=== PATIENT | female | born 1975 | race Caucasian/White ===

== ENCOUNTER 2017-01-03 18:14 | Inpatient (IN) | payer OTHER ==
[2017-01-03] MEDS ORDERED: METOCLOPRAMIDE HCL INJECTION 10 MG/2 ML VIAL IVPB ONE (20:25)
[2017-01-03] MEDS ORDERED: SODIUM CHLORIDE 0.9% 1000 ML INFUS.BAG IV ONE ×2 (20:29→23:38)
--- NOTE | 2017-01-03 21:15 | PDOC ---
History of Present Illness - General History Source: Patient Exam Limitations: No Limitations - History of Present Illness Initial Comments: 01/03/17 21:23 The patient is a 41-year-old female, with a significant past medical history of diabetes, who presents to the ED with 3 days of headache, weakness, and lightheadedness. Pt reports taking Aleve but with no relief of her symptoms. Upon examination, pt is experiencing upper abdominal pain and nausea. She reports not being able to take her insulin today due to nausea. Pt threw up before arriving at the ED. The patient denies any fever, chills, cough, or diarrhea. Pt denies any chest pain or shortness of breath. Pt denies any recent sick contacts. <Zaynab Bruno - Last Filed: 01/04/17 01:49> <Mona Ames - Last Filed: 01/04/17 02:59> <Ana Hernández - Last Filed: 01/04/17 03:02> - General Chief Complaint: Lightheaded Stated Complaint: LIGHTHEADED Past History <Zaynab Bruno - Last Filed: 01/04/17 01:49> <Mona Ames - Last Filed: 01/04/17 02:59> - Past Medical History Diabetes: Yes - Psycho/Social/Smoking Cessation Hx Anxiety: No Suicidal Ideation: No Smoking History: Never smoked Hx Alcohol Use: No Drug/Substance Use Hx: No Substance Use Type: None <Ana Hernández - Last Filed: 01/04/17 03:02> - Past Medical History Allergies/Adverse Reactions: Allergies Allergy/AdvReac Type Severity Reaction Status Date / Time No Known Allergies Allergy Verified 01/03/17 18:31 Review of Systems - Review of Systems Able to Perform ROS?: Yes Comments:: 01/03/17 21:24 GENERAL/CONSTITUTIONAL: No fever or chills. +weakness. HEAD, EYES, EARS, NOSE AND THROAT: No change in vision. No ear pain or discharge. No sore throat. CARDIOVASCULAR: No chest pain or shortness of breath. RESPIRATORY: No cough, wheezing, or hemoptysis. GASTROINTESTINAL: No diarrhea or constipation. +nausea, vomiting, abdominal pain GENITOURINARY: No dysuria, frequency, or change in urination. MUSCULOSKELETAL: No joint or muscle swelling or pain. No neck or back pain. SKIN: No rash NEUROLOGIC: No loss of consciousness, or change in strength/sensation. +headache , lightheadedness ENDOCRINE: No increased thirst. No abnormal weight change. HEMATOLOGIC/LYMPHATIC: No anemia, easy bleeding, or history of blood clots. ALLERGIC/IMMUNOLOGIC: No hives or skin allergy. <Zaynab Bruno - Last Filed: 01/04/17 01:49> *Physical Exam - Vital Signs Last Vital Signs Temp Pulse Resp BP Pulse Ox 98.7 F 110 H 20 109/63 100 01/03/17 18:28 01/03/17 18:28 01/03/17 18:28 01/03/17 18:28 01/03/17 18:28 - Physical Exam Comments: 01/03/17 21:26 GENERAL: Awake, alert, and fully oriented, in no acute distress HEAD: No signs of trauma EYES: PERRLA, EOMI, sclera anicteric, conjunctiva clear ENT: Auricles normal inspection, nares patent, oropharynx clear without exudates. +Dry mucous membranes NECK: Normal ROM, supple, no lymphadenopathy, JVD, or masses LUNGS: Breath sounds equal, clear to auscultation bilaterally. No wheezes, and no crackles HEART: Regular rate and rhythm, normal S1 and S2, no murmurs, rubs or gallops ABDOMEN: Soft, nontender, normoactive bowel sounds. No guarding, no rebound. No masses EXTREMITIES: Normal range of motion, no edema. No clubbing or cyanosis. No cords, erythema, or tenderness NEUROLOGICAL: ANO x3, moving all extremities, cranial nerves grossly intact. SKIN: Warm, Dry, normal turgor, no rashes or lesions noted <Zaynab Bruno - Last Filed: 01/04/17 01:49> - Vital Signs Last Vital Signs Temp Pulse Resp BP Pulse Ox 98.7 F 110 H 20 109/63 100 01/03/17 18:28 01/03/17 18:28 01/03/17 18:28 01/03/17 18:28 01/03/17 18:28 <Mona Ames - Last Filed: 01/04/17 02:59> - Vital Signs Last Vital Signs Temp Pulse Resp BP Pulse Ox 98.7 F 110 H 20 109/63 100 01/03/17 18:28 01/03/17 18:28 01/03/17 18:28 01/03/17 18:28 01/03/17 18:28 <Ana Hernández - Last Filed: 01/04/17 03:02> ED Treatment Course - LABORATORY CBC & Chemistry Diagram: 01/03/17 21:45 01/03/17 21:45 <Zaynab Bruno - Last Filed: 01/04/17 01:49> - LABORATORY CBC & Chemistry Diagram: 01/03/17 21:45 01/03/17 21:45 - ADDITIONAL ORDERS Additional order review: Laboratory Results 01/04/17 01/03/17 01/03/17 01:18 23:48 22:33 VBG pH 7.20 L* POC VBG pCO2 47.8 POC VBG pO2 28.2 Mixed VBG HCO3 17.8 L Sodium Potassium Chloride Carbon Dioxide Anion Gap BUN Creatinine Creat Clearance w eGFR POC Glucometer > 400 Random Glucose Calcium Total Bilirubin AST ALT Alkaline Phosphatase Total Protein Albumin Urine Color Ltyellow Urine Appearance Slcloudy Urine pH 5.0 Urine Protein 1+ H Urine Glucose (UA) 3+ H Urine Ketones 2+ H Urine Blood 2+ H Urine Nitrite Negative Urine Bilirubin Negative Urine Urobilinogen Negative Ur Leukocyte Esterase Negative Urine RBC 14 Urine WBC 23 Ur Epithelial Cells Rare Urine Bacteria Rare Urine Mucus Rare Urine HCG, Qual Negative Acetone, Qual 01/03/17 21:45 VBG pH POC VBG pCO2 POC VBG pO2 Mixed VBG HCO3 Sodium 137 Potassium 4.2 Chloride 99 Carbon Dioxide 20 L Anion Gap 18 H BUN 23 H Creatinine 1.5 H Creat Clearance w eGFR 37.90 POC Glucometer Random Glucose 236 H Calcium 9.3 Total Bilirubin 0.7 AST 17 ALT 20 Alkaline Phosphatase 110 Total Protein 7.7 Albumin 3.2 L Urine Color Urine Appearance Urine pH Urine Protein Urine Glucose (UA) Urine Ketones Urine Blood Urine Nitrite Urine Bilirubin Urine Urobilinogen Ur Leukocyte Esterase Urine RBC Urine WBC Ur Epithelial Cells Urine Bacteria Urine Mucus Urine HCG, Qual Acetone, Qual Positive small 1+ H 01/04/17 01/03/17 01:18 21:45 RBC 4.56 MCV 84.6 MCHC 32.3 RDW 13.8 MPV 8.0 Neutrophils % 88.7 H Lymphocytes % 3.8 L Monocytes % 7.4 Eosinophils % 0.0 Basophils % 0.1 POC Glucometer > 400 - Medications Given in the ED: ED Medications Discontinued Medications Generic Name Dose Route Start Last Admin Trade Name Refugio PRN Reason Stop Dose Admin Al Hydroxide/Mg Hydroxide 30 ml 01/04/17 00:50 01/04/17 01:30 Mylanta Oral Suspension - PO 01/04/17 00:51 30 ml ONCE ONE Administration Famotidine/Sodium Chloride 50 mls @ 100 mls/hr 01/04/17 00:50 01/04/17 01:30 Pepcid 20 Mg Premixed Ivpb - IVPB 01/04/17 01:19 100 mls/hr ONCE ONE Administration Insulin Human Regular 2 units 01/04/17 00:49 01/04/17 01:30 Novolin R Vial *For Ivpush Or Iv Drip Only* IVPUSH 01/04/17 00:50 2 units ONCE ONE Administration Insulin Human Regular 4 units 01/04/17 01:20 01/04/17 01:30 Novolin R Vial *For Ivpush Or Iv Drip Only* IVPUSH 01/04/17 01:21 4 units ONCE ONE Administration Metoclopramide HCl 10 mg 01/03/17 20:25 01/03/17 21:23 Reglan Injection - IVPB 01/03/17 20:26 10 mg ONCE ONE Administration Ondansetron HCl 4 mg 01/03/17 23:37 01/03/17 23:56 Zofran Injection IVPUSH 01/03/17 23:38 4 mg ONCE ONE Administration Sodium Chloride 1,000 ml 01/03/17 20:29 01/03/17 21:23 Normal Saline - IV 01/03/17 20:30 1,000 ml ONCE ONE Administration Sodium Chloride 1,000 ml 01/03/17 23:38 01/03/17 23:46 Normal Saline - IV 01/03/17 23:39 1,000 ml ONCE ONE Administration <Mona Ames - Last Filed: 01/04/17 02:59> - LABORATORY CBC & Chemistry Diagram: 01/03/17 21:45 01/03/17 21:45 <Ana Hernández - Last Filed: 01/04/17 03:02> Medical Decision Making - Medical Decision Making 01/04/17 00:51 Dr. Linda Singh was paged and notified via phone service. Second page placed at 01:49. <Zaynab Bruno - Last Filed: 01/04/17 01:49> - Medical Decision Making 01/04/17 02:[address] Mich Peterson (via answering service) at 2:59 Awaiting call back 01/04/17 03:00 Patient's cased discussed with Dr. Singh at 3:00 <Mona Ames - Last Filed: 01/04/17 02:59> - Medical Decision Making 01/03/17 21:12 41 yo F with h/o DM II on insulin here with c/o body aches, abd pain, headache. started 3 days ago, generalized, no fever. no sick contacts. has not takin insulin due to inability to eat. last emesis one hour prior. no diarrhea. no urinary complaints. did feel lightheaded. on exam pt awake alert, lungs clear bilaterally, heart RRR no mr/g. abd soft NT ND. ext WWP. skin warm and dry. dry mucous membranes. alert and oriented x 3. plan : differential dka, anemia, electorltye abnormality, gastritis, pancreatitis, , dehydration. plan iv fluids r/o dka labs ua ucg reassess. 01/03/17 23:40 01/04/17 02:52 dr singh who admits for Francia, called 3 times. no response. d/w hospitalist told to admit to Dr. Peterson. fidel paged. <Ana Hernández - Last Filed: 01/04/17 03:02> *DC/Admit/Observation/Transfer - Attestations Scribe Attestion: 01/03/17 21:27 Documentation prepared by Zaynab Bruno, acting as medical receptionist medical assistant for Ana Hernández MD. <Zaynab Bruno - Last Filed: 01/04/17 01:49> <Mona Ames - Last Filed: 01/04/17 02:59> - Discharge Dispostion Admit: Yes <Ana Hernández - Last Filed: 01/04/17 03:02> Diagnosis at time of Disposition: Urinary tract infection, Diabetic ketoacidosis - Referrals Referrals: Donovan Feldman MD [Primary Care Provider] -
[2017-01-03 21:53] LABS: BASOPHIL 0.1 % (0-2.0); MCH 27.4 pg (25.7-33.7); MCHC 32.3 g/dl (32.0-36.0); MEAN CELL VOLUME 84.6 fl (80-96); NEUTROPHILS 88.7 % (42.8-82.8); PLATELET COUNT 258 K/MM3 (134-434); RDW 13.8 % (11.6-15.6); WHITE BLOOD COUNT 18.6 K/mm3 (4.0-10.0)
[2017-01-03] MEDS ORDERED: METOCLOPRAMIDE HCL INJECTION 10 MG/2 ML VIAL ONE (21:59)
[2017-01-03 22:21] LABS: ALBUMIN 3.2 g/dl (3.4-5.0); ALK PHOS 110 U/L (45-117); ANION GAP 18 (8-16); BILIRUBIN,TOTAL 0.7 mg/dL (0.2-1.0); CALCIUM 9.3 mg/dL (8.5-10.1); CO2 20 mmol/L (21-32); COCKROFT - GAULT 50.2095; CREATININE 1.5 mg/dL (0.55-1.02); GLUCOSE,RANDOM 236 mg/dL (74-106); SGOT/AST 17 U/L (15-37); SGPT/ALT 20 U/L (12-78); TOT PROT 7.7 g/dl (6.4-8.2)
[2017-01-03 22:45] LABS: VENOUS BLOOD GAS HCO3 17.8 meq/L (19-25)
[2017-01-03 22:46] LABS: VENOUS PH 7.2 (7.32-7.42)
[2017-01-03 22:59] LABS: ACETONE SERUM POSITIVE SMALL 1+ (NEGATIVE)
[2017-01-03] MEDS ORDERED: ONDANSETRON 4 MG/2 ML VIAL IVPUSH ONE (23:37)
[2017-01-03] MEDS ORDERED: ONDANSETRON 4 MG/2 ML VIAL ONE (23:50)
[2017-01-04 00:15] LABS: URINE APPEARANCE SLCLOUDY; URINE BILIRUBIN NEGATIVE (NEGATIVE); URINE COLOR LTYELLOW; URINE GLUCOSE (UA) 3+ (NEGATIVE); URINE KETONE 2+ (NEGATIVE); URINE LEUK ESTERASE NEGATIVE (NEGATIVE); URINE NITRITE NEGATIVE (NEGATIVE); URINE UROBILINOGEN NEGATIVE E.U./dl (0.2-1.0)
[2017-01-04 00:20] LABS: URINE BLOOD 2+ (NEGATIVE); URINE PROTEIN 1+ (NEGATIVE)
[2017-01-04 00:30] LABS: URINE BACTERIA RARE /hpf (NONE SEEN); URINE MUCUS RARE; URINE RBC 14 /hpf (0-3); URINE WBC 23 /hpf (3-5)
[2017-01-04] MEDS ORDERED: INSULIN REGULAR HUMAN 100 UNITS/ML *VIAL IVPUSH ONE ×2 (00:49→01:20)
[2017-01-04] MEDS ORDERED: MAG HYDROX/AL HYDROX/SIMETH 30 ML UNIT-DOSE CUP PO ONE (00:50)
[2017-01-04] MEDS ORDERED: FAMOTIDINE 20 MG/50 ML IVPB 50 ML IVPB ONE ×2 (00:50→01:22)
[2017-01-04] MEDS ORDERED: MAG HYDROX/AL HYDROX/SIMETH 30 ML UNIT-DOSE CUP ONE (01:21)
[2017-01-04] MEDS ORDERED: INSULIN REGULAR HUMAN 100 UNITS/ML *VIAL ONE (01:22)
[2017-01-04] MEDS ORDERED: CEFTRIAXONE 1 GM in DEXTROSE 5%-WATER - 50 ML IVPB ONE (02:35)
[2017-01-04] MEDS ORDERED: KETOROLAC TROMETHAMINE 30 MG/1 ML VIAL IVPUSH ONE (11:30)
[2017-01-04] MEDS ORDERED: SODIUM CHLORIDE 0.45% 1,000 ML IV SCH (13:30)
[2017-01-04] MEDS ORDERED: INSULIN DETEMIR 100 UNITS/ML MDV SQ SCH (13:30)
[2017-01-04] MEDS ORDERED: PATIENT'S OWN MEDICATION (NON-FORMULARY) (Metformin Hcl [Metformin Hcl Er] 1,000 MG) PO SCH (13:30)
--- NOTE | 2017-01-04 15:36 | CONSULT ---
Consult Consult Specialty:: infectious diseases Reason for Consultation:: abd pain,leukocytosis - History of Present Illness Chief Complaint: abd pain,nausea History of Present Illness: 41-year-old female, with a significant past medical history of diabetes, who is being admitted with 3 days of headache, weakness, and lightheadedness. Pt reports taking Aleve but with no relief of her symptoms. patients pain is mainly upper abd pain and according to her was very uncomfortable she feels much better and also patient had her lunch which she tolerated it well on work up patient has leukocytosis and also looks like patient is non compliant and did not take her insulin - History Source History Provided By: Patient Limitations to Obtaining History: No Limitations - Alcohol/Substance Use Hx Alcohol Use: No - Smoking History Smoking history: Never smoked Home Medications - Allergies Allergies/Adverse Reactions: Allergies Allergy/AdvReac Type Severity Reaction Status Date / Time No Known Allergies Allergy Verified 01/03/17 18:31 - Home Medications Home Medications: Ambulatory Orders Dapagliflozin Propanediol [Farxiga] 5 mg PO DAILY 01/04/17 Insulin (Levemir) [Levemir Flexpen -] 0 units SQ DAILY 01/04/17 Metformin HCl [Metformin HCl ER] 1,000 mg PO BID 01/04/17 Review of Systems - Review of Systems Constitutional: reports: No Symptoms Eyes: reports: No Symptoms HENT: reports: No Symptoms, Ringing in Ears Neck: reports: No Symptoms Cardiovascular: reports: No Symptoms Respiratory: reports: No Symptoms Gastrointestinal: reports: Abdominal Pain, Nausea Breasts: reports: No Symptoms Reported Musculoskeletal: reports: No Symptoms Integumentary: reports: No Symptoms Neurological: reports: No Symptoms Endocrine: reports: No Symptoms Hematology/Lymphatic: reports: No Symptoms Psychiatric: reports: No Symptoms Physical Exam Vital Signs: Vital Signs Temperature 98.9 F 01/04/17 14:00 Pulse Rate 112 H 01/04/17 14:00 Respiratory Rate 20 01/04/17 14:00 Blood Pressure 101/55 01/04/17 14:00 O2 Sat by Pulse Oximetry (%) 98 01/04/17 08:06 Constitutional: Yes: No Distress, Calm Eyes: Yes: Conjunctiva Clear HENT: Yes: Atraumatic Neck: Yes: Supple, Trachea Midline Cardiovascular: Yes: Regular Rate and Rhythm Respiratory: Yes: Regular, CTA Bilaterally Gastrointestinal: Yes: Normal Bowel Sounds, Soft, Tenderness (ruq) Musculoskeletal: Yes: WNL Extremities: Yes: WNL Neurological: Yes: Alert, Oriented Psychiatric: Yes: Alert, Oriented Assessment/Plan after evaluating the patient i have couple of tough process one is that he abd pain and all other symptoms could be due to uncontrolled bp the other couls be due to dyspepsis and lastly could be due to choley which is less likely uncontrolled dm dehydration leukocytosis dyspepsia plan will get u/s of the gall bladder iv fluids monitor wbc will start on abx rest as per primary await for all other results to be back
[2017-01-04] MEDS ORDERED: SODIUM CHLORIDE 1,000 ML IV SCH (15:45)
[2017-01-04] MEDS: PIPERACILLIN/TAZOB 3.375 GM 50 ML IVPB SCH (17:43)
[2017-01-04] MEDS: INSULIN SLIDING SCALE (NOVOLOG) 1 VIAL SQ SCH ×2 (17:43→23:04)
[2017-01-04 18:38] VITALS: BMI 28.9
[2017-01-04] MEDS: KETOROLAC TROMETHAMINE 30 MG/1 ML VIAL IVPUSH PRN (19:11)
--- NOTE | 2017-01-04 20:36 | CON.GI ---
Consult Consult Specialty:: Gastroenterology Referred by:: Dr Donovan Feldman/MD Francisco - History of Present Illness History of Present Illness: 41 y/o female has chronic headache and has been on NSAID use for the past few months. Yesterday developed severe epigastric pain, nausea and vomiting which persisted up to the time of admission. Today she feels better. - Past Medical History ...LMP Comment: 10 years ago - Alcohol/Substance Use Hx Alcohol Use: No - Smoking History Smoking history: Never smoked Have you smoked in the past 12 months: No Home Medications - Allergies Allergies/Adverse Reactions: Allergies Allergy/AdvReac Type Severity Reaction Status Date / Time No Known Allergies Allergy Verified 01/03/17 18:31 - Home Medications Home Medications: Ambulatory Orders Dapagliflozin Propanediol [Farxiga] 5 mg PO DAILY 01/04/17 Insulin (Levemir) [Levemir Flexpen -] 0 units SQ DAILY 01/04/17 Metformin HCl [Metformin HCl ER] 1,000 mg PO BID 01/04/17 Physical Exam-GI Vital Signs: Vital Signs Temperature 100.4 F H 01/04/17 18:25 Pulse Rate 123 H 01/04/17 18:25 Respiratory Rate 20 01/04/17 18:25 Blood Pressure 109/61 01/04/17 18:25 O2 Sat by Pulse Oximetry (%) 98 01/04/17 08:06 Constitutional: Yes: Well Nourished Eyes: Yes: Conjunctiva Clear HENT: Yes: Atraumatic Neck: Yes: Supple Cardiovascular: Yes: Regular Rate and Rhythm Respiratory: Yes: CTA Bilaterally ...Palpate: Yes: Soft, Tenderness, Epigastium. No: Firm/Rigid, Guarding, Hepatomegaly, Mass, Pulsatile Mass, Splenomegaly, Tenderness Imaging - Results Ultrasound: Report Reviewed Problem List - Problems (1) Dyspepsia Assessment/Plan: r/o peptic ulcer disease R> Protonix 40mg daily Reglan 5mg 30 min ac on discharge made aware to follow-up Code(s): R10.13 - EPIGASTRIC PAIN
[2017-01-04] MEDS: METOCLOPRAMIDE HCL INJECTION 10 MG/2 ML VIAL IVPB SCH (20:58)
[2017-01-04] MEDS: SODIUM CHLORIDE 1,000 ML IV SCH ×2 (20:58→21:24)
[2017-01-04] MEDS ORDERED: PNEUMOC 13-VAL CONJ-DIP CRM/PF 0.5 ML DISP.SYRIN IM ONE (21:00)
[2017-01-04] MEDS: HEPARIN NA (PORCINE) 5,000 UNITS/ML 1ML VIAL SQ SCH (21:21)
[2017-01-04] MEDS: ONDANSETRON 4 MG/2 ML VIAL IVPB SCH (21:23)
--- NOTE | 2017-01-04 23:20 | HP ---
Admitting History and Physical - Admission History of Present Illness: Pt is a 41-year-old female w/ PMH significant for diabetes who presents to the ER with 3 days of headache, weakness, and lightheadedness.Pt also c/o abdominal discomfort w/ nausea but no vomiting/fever/diarrhea/constipation. Pt states taht she has no appetite and did not take her insulin. In the ER pt found to be acetone (+) and a WBC of 18,000. US abdomen was done wc was unremarkable. - Past Medical History ...LMP Comment: 10 years ago Endocrine: Yes: Diabetes Mellitus - Past Surgical History Past Surgical History: Yes: None - Smoking History Smoking history: Never smoked Have you smoked in the past 12 months: No - Alcohol/Substance Use Hx Alcohol Use: No Home Medications - Allergies Allergies/Adverse Reactions: Allergies Allergy/AdvReac Type Severity Reaction Status Date / Time No Known Allergies Allergy Verified 01/03/17 18:31 - Home Medications Home Medications: Ambulatory Orders Dapagliflozin Propanediol [Farxiga] 5 mg PO DAILY 01/04/17 Insulin (Levemir) [Levemir Flexpen -] 0 units SQ DAILY 01/04/17 Metformin HCl [Metformin HCl ER] 1,000 mg PO BID 01/04/17 Family Disease History - Family Disease History Family History: Unremarkable Review of Systems - Review of Systems Constitutional: reports: Loss of Appetite, Weakness Eyes: reports: No Symptoms HENT: reports: No Symptoms Neck: reports: No Symptoms Cardiovascular: reports: No Symptoms Respiratory: reports: No Symptoms Gastrointestinal: reports: Abdominal Pain, Nausea Genitourinary: reports: No Symptoms Physical Examination Vital Signs: Vital Signs Temperature 100.4 F H 01/04/17 18:25 Pulse Rate 123 H 01/04/17 18:25 Respiratory Rate 20 01/04/17 18:25 Blood Pressure 109/61 01/04/17 18:25 O2 Sat by Pulse Oximetry (%) 98 01/04/17 08:06 Constitutional: Yes: No Distress Eyes: Yes: WNL HENT: Yes: WNL Neck: Yes: WNL, Supple Cardiovascular: Yes: WNL, Regular Rate and Rhythm Respiratory: Yes: WNL, Regular, CTA Bilaterally Gastrointestinal: Yes: WNL, Normal Bowel Sounds, Soft Breast(s): Yes: WNL Musculoskeletal: Yes: WNL Extremities: Yes: WNL Edema: No Neurological: Yes: WNL, Alert, Oriented ...Motor Strength: WNL Problem List - Problems (1) DKA (diabetic ketoacidoses) Assessment/Plan: Cont IVF Cont novolog w/ sliding scale Endo consult Advance diet as tolerated Code(s): E13.10 - OTH DIABETES MELLITUS WITH KETOACIDOSIS WITHOUT COMA (2) Abdominal pain Assessment/Plan: Will get GI consult Code(s): R10.9 - UNSPECIFIED ABDOMINAL PAIN (3) Leukocytosis Assessment/Plan: ID consult Cont IV antibxs Code(s): D72.829 - ELEVATED WHITE BLOOD CELL COUNT, UNSPECIFIED (4) Acute renal failure Assessment/Plan: Probably due to dehydration from DKA Code(s): N17.9 - ACUTE KIDNEY FAILURE, UNSPECIFIED
[2017-01-05] MEDS: KETOROLAC TROMETHAMINE 30 MG/1 ML VIAL IVPUSH PRN ×2 (00:57→21:41)
[2017-01-05] MEDS: ONDANSETRON 4 MG/2 ML VIAL IVPB SCH ×3 (00:57→08:48)
[2017-01-05] MEDS: PIPERACILLIN/TAZOB 3.375 GM 50 ML IVPB SCH ×2 (01:34→11:00)
[2017-01-05] MEDS: METOCLOPRAMIDE HCL INJECTION 10 MG/2 ML VIAL IVPB SCH ×3 (03:45→20:13)
[2017-01-05] MEDS ORDERED: INSULIN DETEMIR 100 UNITS/ML MDV SQ SCH ×2 (07:00→22:00)
[2017-01-05 07:32] LABS: BASOPHIL 0.2 % (0-2.0); EOSINOPHIL 0.3 % (0-4.5); MCH 28.2 pg (25.7-33.7); MCHC 33.5 g/dl (32.0-36.0); MEAN CELL VOLUME 84.3 fl (80-96); MEAN PLT VOLUME 8.2 fl (7.5-11.1); PLATELET COUNT 199 K/MM3 (134-434); WHITE BLOOD COUNT 13.9 K/mm3 (4.0-10.0)
[2017-01-05] MEDS: INSULIN SLIDING SCALE (NOVOLOG) 1 VIAL SQ SCH ×4 (07:33→21:40)
[2017-01-05 08:04] LABS: ALBUMIN 2.1 g/dl (3.4-5.0); ANION GAP 16 (8-16); CALCIUM 7.8 mg/dL (8.5-10.1); CO2 16 mmol/L (21-32); GLUCOSE,RANDOM 222 mg/dL (74-106)
[2017-01-05 08:08] LABS: ALK PHOS 115 U/L (45-117); BILIRUBIN,TOTAL 0.6 mg/dL (0.2-1.0); CREATININE 1.5 mg/dL (0.55-1.02); SGOT/AST 26 U/L (15-37); SGPT/ALT 24 U/L (12-78); TOT PROT 5.8 g/dl (6.4-8.2)
[2017-01-05] MEDS ORDERED: ONDANSETRON 4 MG/2 ML VIAL IVPB PRN (10:00)
[2017-01-05] MEDS ORDERED: CEFTRIAXONE 50 ML IVPB SCH (10:00)
[2017-01-05] MEDS ORDERED: PANTOPRAZOLE 40 MG TABLET (FP) PO SCH (10:00)
[2017-01-05] MEDS ORDERED: PT OWN MED DRAWER 7, Y5N ONE ×3 (10:59→12:06)
[2017-01-05] MEDS: HEPARIN NA (PORCINE) 5,000 UNITS/ML 1ML VIAL SQ SCH ×2 (11:01→21:35)
[2017-01-05] MEDS ORDERED: INSULIN (NOVOLOG) ASPART 100 UNITS/ML 10ML VIAL ONE ×3 (11:50→21:39)
--- NOTE | 2017-01-05 12:59 | PN ---
Progress Note, Physician History of Present Illness: doing much better tolerating diet more gerd type of symptoms now wbc decreasing - Current Medication List Current Medications: Active Medications Heparin Sodium (Porcine) (Heparin -) 5,000 unit SQ BID RICHIE Last Admin: 01/05/17 11:01 Dose: 5,000 unit Piperacillin Sod/Tazobactam Sod (Zosyn 3.375gm Ivpb (Pre-Docked)) 50 mls @ 100 mls/hr IVPB Q8H-IV RICHIE PRN Reason: Protocol Last Admin: 01/05/17 11:00 Dose: 100 mls/hr Sodium Chloride (Normal Saline -) 1,000 mls @ 150 mls/hr IV ASDIR RICHIE Stop: 01/06/17 22:24 Last Admin: 01/04/17 21:24 Dose: Not Given Insulin Aspart (Novolog Vial Sliding Scale -) 1 vial SQ ACHS RICHIE PRN Reason: Protocol Last Admin: 01/05/17 07:33 Dose: 4 units Insulin Detemir (Levemir Vial) 7 units SQ HS RICHIE Insulin Detemir (Levemir Vial) 22 units SQ AM RICHIE Last Admin: 01/05/17 07:33 Dose: 22 unit Ketorolac Tromethamine (Toradol Injection -) 30 mg IVPUSH Q6H PRN Stop: 01/09/17 17:29 Last Admin: 01/05/17 00:57 Dose: 30 mg Metoclopramide HCl (Reglan Injection -) 10 mg IVPB Q8H [facility] Last Admin: 01/05/17 11:56 Dose: 10 mg Non-Formulary Medication (Dapagliflozin Propanediol [Farxiga]) 5 mg PO ACBK RICHIE Ondansetron HCl (Zofran Injection) 4 mg IVPB Q4H PRN - Objective Vital Signs: Vital Signs Temperature 99.8 F H 01/04/17 22:00 Pulse Rate 108 H 01/04/17 22:00 Respiratory Rate 20 01/04/17 22:00 Blood Pressure 106/62 01/04/17 22:00 O2 Sat by Pulse Oximetry (%) 98 01/04/17 21:00 Constitutional: Yes: No Distress, Calm Eyes: Yes: Conjunctiva Clear Cardiovascular: Yes: Regular Rate and Rhythm Respiratory: Yes: Regular, CTA Bilaterally Gastrointestinal: Yes: Normal Bowel Sounds, Soft Musculoskeletal: Yes: WNL Extremities: Yes: WNL Labs: CBC, BMP 01/05/17 06:15 01/05/17 06:15 Assessment/Plan uncontrolled dm dehydration leukocytosis dyspepsia plan will hold abx and monitor rest as per gi and primary continue current mgmt
[2017-01-05] MEDS: SODIUM CHLORIDE 1,000 ML IV SCH ×2 (13:02→19:51)
[2017-01-05] MEDS ORDERED: ACETAMINOPHEN 325 MG TABLET (FP) ONE (22:03)
[2017-01-05] MEDS ORDERED: morphine CARPU-JECT 4 MG/1 ML DISP.SYRIN IVPUSH PRN (22:45)
[2017-01-05] MEDS ORDERED: cefTRIAXone 1 GM/50 ML BAG (PRE-DOCKED) IVPB ONE (23:15)
--- NOTE | 2017-01-05 23:30 | PN ---
Progress Note, Physician History of Present Illness: Pt tolerating diet - Current Medication List Current Medications: Active Medications Ceftriaxone Sodium (Rocephin 1gm Ivpb (Pre-Docked)) 1 gm IVPB DAILY [facility] Heparin Sodium (Porcine) (Heparin -) 5,000 unit SQ BID [facility] Sodium Chloride (Normal Saline -) 1,000 mls @ 150 mls/hr IV ASDIR [facility] Stop: 01/06/17 22:24 Last Admin: 01/05/17 19:51 Dose: 150 mls/hr Insulin Aspart (Novolog Vial Sliding Scale -) 1 vial SQ ACHS RICHIE PRN Reason: Protocol Last Admin: 01/05/17 21:40 Dose: 4 units Insulin Detemir (Levemir Vial) 7 units SQ HS [facility] Last Admin: 01/05/17 21:35 Dose: 7 units Insulin Detemir (Levemir Vial) 22 units SQ AM [facility] Last Admin: 01/05/17 07:33 Dose: 22 unit Metoclopramide HCl (Reglan Injection -) 10 mg IVPB Q8H [facility] Last Admin: 01/05/17 20:13 Dose: 10 mg Morphine Sulfate (Morphine Injection -) 4 mg IVPUSH Q6H PRN PRN Reason: PAIN Non-Formulary Medication (Dapagliflozin Propanediol [Farxiga]) 5 mg PO ACBK [facility] Ondansetron HCl (Zofran Injection) 4 mg IVPB Q4H PRN Pantoprazole Sodium (Protonix -) 40 mg PO DAILY [facility] - Objective Vital Signs: Vital Signs Temperature 101.6 F H 01/05/17 21:48 Pulse Rate 110 H 01/05/17 22:00 Respiratory Rate 18 01/05/17 22:00 Blood Pressure 133/78 01/05/17 22:00 O2 Sat by Pulse Oximetry (%) 98 01/05/17 21:00 Constitutional: Yes: No Distress Eyes: Yes: WNL HENT: Yes: WNL Neck: Yes: WNL, Supple Cardiovascular: Yes: WNL, Regular Rate and Rhythm Respiratory: Yes: WNL, Regular, CTA Bilaterally Gastrointestinal: Yes: WNL, Normal Bowel Sounds, Soft Labs: CBC, BMP 01/05/17 06:15 01/05/17 06:15 Problem List - Problems (1) Abdominal pain Code(s): R10.9 - UNSPECIFIED ABDOMINAL PAIN (2) Acute renal failure Code(s): N17.9 - ACUTE KIDNEY FAILURE, UNSPECIFIED (3) DKA (diabetic ketoacidoses) Code(s): E13.10 - OTH DIABETES MELLITUS WITH KETOACIDOSIS WITHOUT COMA (4) Leukocytosis Code(s): D72.829 - ELEVATED WHITE BLOOD CELL COUNT, UNSPECIFIED
--- NOTE | 2017-01-05 23:32 | CONSULT ---
Consult Consult Specialty:: endocrine Referred by:: dr.rocco garcia Reason for Consultation:: diabetes mellitus - History of Present Illness Chief Complaint: high sugars/abdominal pain History of Present Illness: 41-year-old female, with a significant past medical history of diabetes, who is being admitted with 3 days of headache, weakness, and lightheadedness. Pt reports taking Aleve but with no relief of her symptoms.history of dm since age 18yrs,was on oral agents in past years,has recent nausea and abdominal pain severe and associated with poor appetite no diarhea or hematochezia - History Source History Provided By: Patient - Past Medical History ...LMP Comment: 10 years ago - Alcohol/Substance Use Hx Alcohol Use: No - Smoking History Smoking history: Never smoked Have you smoked in the past 12 months: No Home Medications - Allergies Allergies/Adverse Reactions: Allergies Allergy/AdvReac Type Severity Reaction Status Date / Time No Known Allergies Allergy Verified 01/03/17 18:31 - Home Medications Home Medications: Ambulatory Orders Dapagliflozin Propanediol [Farxiga] 5 mg PO DAILY 01/04/17 Insulin (Levemir) [Levemir Flexpen -] 0 units SQ DAILY 01/04/17 Metformin HCl [Metformin HCl ER] 1,000 mg PO BID 01/04/17 Review of Systems - Review of Systems Constitutional: reports: Loss of Appetite, Weakness Eyes: reports: No Symptoms HENT: reports: No Symptoms Neck: reports: No Symptoms Cardiovascular: reports: No Symptoms Respiratory: reports: Exercise Intolerance, SOB, SOB on Exertion Gastrointestinal: reports: Constipation, Nausea Genitourinary: reports: No Symptoms Breasts: reports: No Symptoms Reported Musculoskeletal: reports: Muscle Weakness Integumentary: reports: No Symptoms Neurological: reports: No Symptoms Endocrine: reports: No Symptoms Hematology/Lymphatic: reports: No Symptoms Psychiatric: reports: No Symptoms Physical Exam Vital Signs: Vital Signs Temperature 101.6 F H 01/05/17 21:48 Pulse Rate 110 H 01/05/17 22:00 Respiratory Rate 18 01/05/17 22:00 Blood Pressure 133/78 01/05/17 22:00 O2 Sat by Pulse Oximetry (%) 98 01/05/17 21:00 Constitutional: Yes: Anxious Eyes: Yes: EOM Intact HENT: Yes: Normocephalic Neck: Yes: Trachea Midline Respiratory: Yes: CTA Bilaterally Gastrointestinal: Yes: Hypoactive Bowel Sounds, Tenderness, Epigastrium ...Rectal Exam: Yes: Deferred Renal/: Yes: WNL Breast(s): Yes: WNL Musculoskeletal: Yes: WNL, Muscle Weakness Extremities: Yes: WNL Edema: No Integumentary: Yes: WNL Neurological: Yes: WNL, Alert, Oriented Labs: CBC, BMP 01/05/17 06:15 01/05/17 06:15 Problem List - Problems (1) DKA (diabetic ketoacidoses) Code(s): E13.10 - OTH DIABETES MELLITUS WITH KETOACIDOSIS WITHOUT COMA (2) Dyspepsia Code(s): R10.13 - EPIGASTRIC PAIN (3) Diabetes mellitus, insulin dependent (IDDM), uncontrolled Code(s): E10.65 - TYPE 1 DIABETES MELLITUS WITH HYPERGLYCEMIA Assessment/Plan Current Active Problems DKA (diabetic ketoacidoses) (Acute) Dyspepsia (Acute) UTI (urinary tract infection) (Acute) iddm uncontrolled hyperglycemia gastroparesis Abnormal Lab Results 01/05/17 01/05/17 01/05/17 06:15 06:15 06:15 WBC 13.9 H Lymphocytes % 5.2 L D Monocytes % 14.3 H D Carbon Dioxide 16 L BUN 24 H Creatinine 1.5 H Random Glucose 222 H Hemoglobin A1c % 9.7 H Calcium 7.8 L Total Protein 5.8 L D Albumin 2.1 L D Laboratory Results - last 24 hr 01/05/17 01/05/17 01/05/17 05:52 05:54 06:15 WBC 13.9 H RBC 3.93 Hgb 11.1 D Hct 33.2 MCV 84.3 MCHC 33.5 RDW 14.0 Plt Count 199 D MPV 8.2 Neutrophils % 80.0 Lymphocytes % 5.2 L D Monocytes % 14.3 H D Eosinophils % 0.3 D Basophils % 0.2 Sodium Potassium Chloride Carbon Dioxide Anion Gap BUN Creatinine Creat Clearance w eGFR POC Glucometer 220 235 Random Glucose Hemoglobin A1c % Calcium Total Bilirubin AST ALT Alkaline Phosphatase Total Protein Albumin 01/05/17 01/05/17 01/05/17 06:15 06:15 11:04 WBC RBC Hgb Hct MCV MCHC RDW Plt Count MPV Neutrophils % Lymphocytes % Monocytes % Eosinophils % Basophils % Sodium 138 Potassium 4.2 Chloride 106 Carbon Dioxide 16 L Anion Gap 16 BUN 24 H Creatinine 1.5 H Creat Clearance w eGFR 37.90 POC Glucometer 204 Random Glucose 222 H Hemoglobin A1c % 9.7 H Calcium 7.8 L Total Bilirubin 0.6 AST 26 D ALT 24 Alkaline Phosphatase 115 Total Protein 5.8 L D Albumin 2.1 L D 01/05/17 01/05/17 16:46 21:34 WBC RBC Hgb Hct MCV MCHC RDW Plt Count MPV Neutrophils % Lymphocytes % Monocytes % Eosinophils % Basophils % Sodium Potassium Chloride Carbon Dioxide Anion Gap BUN Creatinine Creat Clearance w eGFR POC Glucometer 223 223 Random Glucose Hemoglobin A1c % Calcium Total Bilirubin AST ALT Alkaline Phosphatase Total Protein Albumin plan: bgm qid novolog scale insulin coverage levemir increase am 35 units hs levemir 12 units ck hba1c Current Medications Generic Name Dose Route Start Last Admin Trade Name Freq PRN Reason Stop Dose Admin Ceftriaxone Sodium 1 gm 01/06/17 10:00 Rocephin 1gm Ivpb (Pre-Docked) IVPB DAILY RICHIE Heparin Sodium (Porcine) 5,000 unit 01/06/17 10:00 Heparin - SQ BID RICHIE Sodium Chloride 1,000 mls @ 150 mls/hr 01/04/17 20:28 01/05/17 19:51 Normal Saline - IV 01/06/17 22:24 150 mls/hr ASDIR RICHIE Administration Insulin Aspart 1 vial 01/04/17 16:30 01/05/17 21:40 Novolog Vial Sliding Scale - SQ 4 units ACHS RICHIE Administration Protocol Insulin Detemir 7 units 01/05/17 22:00 01/05/17 21:35 Levemir Vial SQ 7 units HS RICHIE Administration Insulin Detemir 35 units 01/05/17 23:36 Levemir Vial SQ AM RICHIE Metoclopramide HCl 10 mg 01/04/17 20:30 01/05/17 20:13 Reglan Injection - IVPB 10 mg Q8H RICHIE Administration Morphine Sulfate 4 mg 01/05/17 22:45 Morphine Injection - IVPUSH Q6H PRN PAIN Non-Formulary Medication 5 mg 01/06/17 07:00 Dapagliflozin Propanediol [Farxiga] PO ACBK RICHIE Ondansetron HCl 4 mg 01/05/17 10:00 Zofran Injection IVPB Q4H PRN Pantoprazole Sodium 40 mg 01/06/17 10:00 Protonix - PO DAILY RICHIE
[2017-01-06] MEDS: METOCLOPRAMIDE HCL INJECTION 10 MG/2 ML VIAL IVPB SCH ×3 (04:19→20:31)
[2017-01-06] MEDS: PATIENT'S OWN MEDICATION (NON-FORMULARY) (Dapagliflozin Propanediol [Farxiga] 5 MG) PO SCH (06:00)
[2017-01-06] MEDS: INSULIN DETEMIR 100 UNITS/ML MDV SQ SCH ×2 (06:00→22:08)
[2017-01-06] MEDS: INSULIN SLIDING SCALE (NOVOLOG) 1 VIAL SQ SCH ×4 (06:00→22:07)
[2017-01-06 08:36] LABS: BASOPHIL 0.2 % (0-2.0); EOSINOPHIL 0.6 % (0-4.5); MCH 28.2 pg (25.7-33.7); MCHC 33.9 g/dl (32.0-36.0); MEAN CELL VOLUME 83.3 fl (80-96); MEAN PLT VOLUME 8.4 fl (7.5-11.1); PLATELET COUNT 223 K/MM3 (134-434); RDW 13.9 % (11.6-15.6); WHITE BLOOD COUNT 12.4 K/mm3 (4.0-10.0)
[2017-01-06 08:59] LABS: ALBUMIN 2.1 g/dl (3.4-5.0); ANION GAP 12 (8-16); CALCIUM 7.7 mg/dL (8.5-10.1); CO2 20 mmol/L (21-32); GLUCOSE,RANDOM 93 mg/dL (74-106)
[2017-01-06 09:03] LABS: ALK PHOS 227 U/L (45-117); BILIRUBIN,TOTAL 0.6 mg/dL (0.2-1.0); SGOT/AST 128 U/L (15-37); SGPT/ALT 108 U/L (12-78); TOT PROT 6.2 g/dl (6.4-8.2)
[2017-01-06] MEDS ORDERED: CEFTRIAXONE 1 GM in DEXTROSE 5%-WATER - 50 ML IVPB SCH (10:00)
[2017-01-06] MEDS: cefTRIAXone 1 GM/50 ML BAG (PRE-DOCKED) IVPB SCH (10:14)
[2017-01-06] MEDS: HEPARIN NA (PORCINE) 5,000 UNITS/ML 1ML VIAL SQ SCH ×2 (10:14→22:21)
[2017-01-06] MEDS: PANTOPRAZOLE 40 MG TABLET (FP) PO SCH (10:14)
[2017-01-06] MEDS ORDERED: PT OWN MED DRAWER 7, Y5N ONE ×2 (17:05→17:49)
[2017-01-06] MEDS: LIPASE/PROTEASE/AMYLASE 36,000 UNIT CAPSULE PO SCH (17:38)
[2017-01-06] MEDS ORDERED: INSULIN (NOVOLOG) ASPART 100 UNITS/ML 10ML VIAL ONE (17:52)
--- NOTE | 2017-01-06 23:55 | PN ---
Progress Note, Physician History of Present Illness: Pt feeling better - Current Medication List Current Medications: Active Medications Acetaminophen (Tylenol -) 650 mg PO Q6H PRN PRN Reason: FEVER OR PAIN Ceftriaxone Sodium (Rocephin 1gm Ivpb (Pre-Docked)) 1 gm IVPB DAILY [facility] Last Admin: 01/06/17 10:14 Dose: 1 gm Heparin Sodium (Porcine) (Heparin -) 5,000 unit SQ BID [facility] Last Admin: 01/06/17 22:21 Dose: 5,000 unit Insulin Aspart (Novolog Vial Sliding Scale -) 1 vial SQ ACHS [facility] PRN Reason: Protocol Last Admin: 01/06/17 22:07 Dose: 4 units Insulin Detemir (Levemir Vial) 35 units SQ AM [facility] Last Admin: 01/06/17 06:00 Dose: Not Given Insulin Detemir (Levemir Vial) 12 units SQ HS [facility] Last Admin: 01/06/17 22:08 Dose: 12 units Metoclopramide HCl (Reglan Injection -) 10 mg IVPB Q8H [facility] Last Admin: 01/06/17 20:31 Dose: 10 mg Morphine Sulfate (Morphine Injection -) 4 mg IVPUSH Q6H PRN PRN Reason: PAIN Non-Formulary Medication (Dapagliflozin Propanediol [Farxiga]) 5 mg PO ACBK [facility] Last Admin: 01/06/17 06:00 Dose: Not Given Ondansetron HCl (Zofran Injection) 4 mg IVPB Q4H PRN Pancrelipase (Creon Dr 36,000 Units Capsule) 1 cap PO TIDCM [facility] Last Admin: 01/06/17 17:38 Dose: 1 cap Pantoprazole Sodium (Protonix -) 40 mg PO DAILY [facility] Last Admin: 01/06/17 10:14 Dose: 40 mg - Objective Vital Signs: Vital Signs Temperature 100.6 F H 01/06/17 17:00 Pulse Rate 106 H 01/06/17 17:00 Respiratory Rate 20 01/06/17 17:00 Blood Pressure 127/72 01/06/17 17:00 O2 Sat by Pulse Oximetry (%) 96 01/06/17 09:00 Constitutional: Yes: No Distress Eyes: Yes: WNL HENT: Yes: WNL Neck: Yes: Supple Cardiovascular: Yes: WNL, Regular Rate and Rhythm Respiratory: Yes: WNL, Regular, CTA Bilaterally Gastrointestinal: Yes: WNL, Normal Bowel Sounds, Soft Labs: CBC, BMP 01/06/17 06:35 01/06/17 06:35 Problem List - Problems (1) DKA (diabetic ketoacidoses) Assessment/Plan: Cont IVF Cont novolog w/ sliding scale/farxiga Code(s): E13.10 - OTH DIABETES MELLITUS WITH KETOACIDOSIS WITHOUT COMA (2) Abdominal pain Assessment/Plan: GI consult noted Dyspepsia/Gastroparesis Cont protonix/reglan Code(s): R10.9 - UNSPECIFIED ABDOMINAL PAIN (3) Leukocytosis Assessment/Plan: IV antibxs as per ID Cultures remain negative Code(s): D72.829 - ELEVATED WHITE BLOOD CELL COUNT, UNSPECIFIED (4) Acute renal failure Assessment/Plan: Probably due to dehydration from DKA Resolved after IV hydration Code(s): N17.9 - ACUTE KIDNEY FAILURE, UNSPECIFIED
[2017-01-07] MEDS: METOCLOPRAMIDE HCL INJECTION 10 MG/2 ML VIAL IVPB SCH ×3 (04:41→21:56)
[2017-01-07] MEDS: PATIENT'S OWN MEDICATION (NON-FORMULARY) (Dapagliflozin Propanediol [Farxiga] 5 MG) PO SCH (06:52)
[2017-01-07] MEDS: INSULIN SLIDING SCALE (NOVOLOG) 1 VIAL SQ SCH ×4 (06:54→21:56)
[2017-01-07] MEDS: INSULIN DETEMIR 100 UNITS/ML MDV SQ SCH ×2 (06:54→21:56)
[2017-01-07] MEDS: ACETAMINOPHEN 325 MG TABLET (FP) PO PRN (06:59)
[2017-01-07] MEDS ORDERED: PT OWN MED DRAWER 7, Y5N ONE ×6 (08:15→15:18)
[2017-01-07] MEDS: LIPASE/PROTEASE/AMYLASE 36,000 UNIT CAPSULE PO SCH ×3 (08:22→17:59)
[2017-01-07] MEDS: cefTRIAXone 1 GM/50 ML BAG (PRE-DOCKED) IVPB SCH (09:04)
[2017-01-07] MEDS: PANTOPRAZOLE 40 MG TABLET (FP) PO SCH (09:04)
[2017-01-07] MEDS: HEPARIN NA (PORCINE) 5,000 UNITS/ML 1ML VIAL SQ SCH ×2 (09:04→21:56)
--- NOTE | 2017-01-07 11:37 | PN ---
Progress Note, Physician History of Present Illness: patient stable still continues to have low grade temperature otherwise no issues - Current Medication List Current Medications: Active Medications Acetaminophen (Tylenol -) 650 mg PO Q6H PRN PRN Reason: FEVER OR PAIN Last Admin: 01/07/17 06:59 Dose: 650 mg Ceftriaxone Sodium (Rocephin 1gm Ivpb (Pre-Docked)) 1 gm IVPB DAILY [facility] Last Admin: 01/07/17 09:04 Dose: 1 gm Heparin Sodium (Porcine) (Heparin -) 5,000 unit SQ BID [facility] Last Admin: 01/07/17 09:04 Dose: 5,000 unit Insulin Aspart (Novolog Vial Sliding Scale -) 1 vial SQ ACHS [facility] PRN Reason: Protocol Last Admin: 01/07/17 06:54 Dose: Not Given Insulin Detemir (Levemir Vial) 35 units SQ AM [facility] Last Admin: 01/07/17 06:54 Dose: Not Given Insulin Detemir (Levemir Vial) 12 units SQ HS [facility] Last Admin: 01/06/17 22:08 Dose: 12 units Metoclopramide HCl (Reglan Injection -) 10 mg IVPB Q8H [facility] Last Admin: 01/07/17 04:41 Dose: 10 mg Morphine Sulfate (Morphine Injection -) 4 mg IVPUSH Q6H PRN PRN Reason: PAIN Non-Formulary Medication (Dapagliflozin Propanediol [Farxiga]) 5 mg PO ACBK [facility] Last Admin: 01/07/17 06:52 Dose: 5 mg Ondansetron HCl (Zofran Injection) 4 mg IVPB Q4H PRN Pancrelipase (Creon Dr 36,000 Units Capsule) 1 cap PO TIDCM [facility] Last Admin: 01/07/17 08:22 Dose: 1 cap Pantoprazole Sodium (Protonix -) 40 mg PO DAILY [facility] Last Admin: 01/07/17 09:04 Dose: 40 mg - Objective Vital Signs: Vital Signs Temperature 99.8 F H 01/07/17 08:55 Pulse Rate 106 H 01/07/17 08:55 Respiratory Rate 18 01/07/17 08:55 Blood Pressure 112/60 01/07/17 08:55 O2 Sat by Pulse Oximetry (%) 96 01/06/17 21:00 Constitutional: Yes: No Distress, Calm Cardiovascular: Yes: Regular Rate and Rhythm Respiratory: Yes: Regular, CTA Bilaterally Musculoskeletal: Yes: WNL Extremities: Yes: WNL Neurological: Yes: Alert, Oriented Psychiatric: Yes: Alert Labs: CBC, BMP 01/06/17 06:35 01/06/17 06:35 Assessment/Plan uncontrolled dm dehydration leukocytosis dyspepsia plan patient on ceftriaxone will continue the same all cx negative so far if continues to spike cx rest as per primary also will change abx if she spikes today
[2017-01-07] MEDS: AMPICILLIN NA/SULBACTAM NA 3 GM in SODIUM CHLORIDE 100 ML IVPB SCH ×2 (14:00→17:58)
[2017-01-07] MEDS: POLYETHYLENE GLYCOL 3350 119 GM BTL PO SCH (17:59)
[2017-01-07] MEDS ORDERED: INSULIN (NOVOLOG) ASPART 100 UNITS/ML 10ML VIAL ONE (21:08)
--- NOTE | 2017-01-07 23:37 | PN ---
Progress Note, Physician History of Present Illness: Pt feeling better and tolerating diet - Current Medication List Current Medications: Active Medications Acetaminophen (Tylenol -) 650 mg PO Q6H PRN PRN Reason: FEVER OR PAIN Last Admin: 01/07/17 06:59 Dose: 650 mg Heparin Sodium (Porcine) (Heparin -) 5,000 unit SQ BID [facility] Last Admin: 01/07/17 21:56 Dose: 5,000 unit Ampicillin Sodium/Sulbactam (Sodium 3 gm/ Sodium Chloride) 100 mls @ 200 mls/ hr IVPB Q8H-IV RICHIE Last Admin: 01/07/17 17:58 Dose: 200 mls/hr Insulin Aspart (Novolog Vial Sliding Scale -) 1 vial SQ ACHS RICHIE PRN Reason: Protocol Last Admin: 01/07/17 21:56 Dose: 2 units Insulin Detemir (Levemir Vial) 35 units SQ AM [facility] Last Admin: 01/07/17 06:54 Dose: Not Given Insulin Detemir (Levemir Vial) 12 units SQ HS [facility] Last Admin: 01/07/17 21:56 Dose: 12 units Metoclopramide HCl (Reglan Injection -) 10 mg IVPB Q8H [facility] Last Admin: 01/07/17 21:56 Dose: 10 mg Morphine Sulfate (Morphine Injection -) 4 mg IVPUSH Q6H PRN PRN Reason: PAIN Non-Formulary Medication (Dapagliflozin Propanediol [Farxiga]) 5 mg PO ACBK [facility] Last Admin: 01/07/17 06:52 Dose: 5 mg Ondansetron HCl (Zofran Injection) 4 mg IVPB Q4H PRN Pancrelipase (Creon Dr 36,000 Units Capsule) 1 cap PO TIDCM [facility] Last Admin: 01/07/17 17:59 Dose: 1 cap Pantoprazole Sodium (Protonix -) 40 mg PO DAILY [facility] Last Admin: 01/07/17 09:04 Dose: 40 mg Polyethylene Glycol (Miralax (For Daily Use) -) 17 gm PO DAILY [facility] Last Admin: 01/07/17 17:59 Dose: 17 gm - Objective Vital Signs: Vital Signs Temperature 97.8 F 01/07/17 16:20 Pulse Rate 81 01/07/17 16:20 Respiratory Rate 20 01/07/17 16:20 Blood Pressure 122/69 01/07/17 16:20 O2 Sat by Pulse Oximetry (%) 96 01/07/17 09:00 Constitutional: Yes: No Distress Eyes: Yes: WNL HENT: Yes: WNL Neck: Yes: WNL, Supple Cardiovascular: Yes: WNL, Regular Rate and Rhythm Respiratory: Yes: WNL, Regular, CTA Bilaterally Gastrointestinal: Yes: WNL, Normal Bowel Sounds, Soft Labs: CBC, BMP 01/06/17 06:35 01/06/17 06:35 Problem List - Problems (1) Abdominal pain Assessment/Plan: LFT's elevated CT noted Dyspepsia/Gastroparesis Cont protonix/reglan Check HIDA scan Will get surgical consult Monitor labs Code(s): R10.9 - UNSPECIFIED ABDOMINAL PAIN (2) DKA (diabetic ketoacidoses) Assessment/Plan: Cont IVF Cont novolog w/ sliding scale/farxiga Code(s): E13.10 - OTH DIABETES MELLITUS WITH KETOACIDOSIS WITHOUT COMA (3) Leukocytosis Assessment/Plan: IV unasyn as per ID Cultures remain negative Code(s): D72.829 - ELEVATED WHITE BLOOD CELL COUNT, UNSPECIFIED (4) Acute renal failure Assessment/Plan: Probably due to dehydration from DKA Resolved after IV hydration Code(s): N17.9 - ACUTE KIDNEY FAILURE, UNSPECIFIED
[2017-01-08] MEDS ORDERED: PT OWN MED DRAWER 7, Y5N ONE ×3 (01:58→12:02)
[2017-01-08] MEDS: AMPICILLIN NA/SULBACTAM NA 3 GM in SODIUM CHLORIDE 100 ML IVPB SCH ×3 (02:15→17:30)
[2017-01-08] MEDS: METOCLOPRAMIDE HCL INJECTION 10 MG/2 ML VIAL IVPB SCH ×3 (06:18→21:11)
[2017-01-08] MEDS: INSULIN DETEMIR 100 UNITS/ML MDV SQ SCH ×2 (06:19→21:18)
[2017-01-08] MEDS: INSULIN SLIDING SCALE (NOVOLOG) 1 VIAL SQ SCH ×4 (06:19→21:16)
[2017-01-08] MEDS: PATIENT'S OWN MEDICATION (NON-FORMULARY) (Dapagliflozin Propanediol [Farxiga] 5 MG) PO SCH (06:19)
[2017-01-08] MEDS ORDERED: INSULIN (NOVOLOG) ASPART 100 UNITS/ML 10ML VIAL ONE ×2 (06:40→12:03)
[2017-01-08 07:35] LABS: MCH 28.4 pg (25.7-33.7); MCHC 34.9 g/dl (32.0-36.0); MEAN CELL VOLUME 81.4 fl (80-96); MEAN PLT VOLUME 7.8 fl (7.5-11.1); PLATELET COUNT 255 K/MM3 (134-434); RDW 14.1 % (11.6-15.6); WHITE BLOOD COUNT 10.2 K/mm3 (4.0-10.0)
[2017-01-08 08:11] LABS: ALBUMIN 1.9 g/dl (3.4-5.0); ALK PHOS 206 U/L (45-117); ANION GAP 10 (8-16); BILIRUBIN,TOTAL 0.4 mg/dL (0.2-1.0); CALCIUM 7.8 mg/dL (8.5-10.1); CO2 23 mmol/L (21-32); CREATININE 0.9 mg/dL (0.55-1.02); GLUCOSE,RANDOM 93 mg/dL (74-106); SGOT/AST 35 U/L (15-37); SGPT/ALT 64 U/L (12-78); TOT PROT 5.9 g/dl (6.4-8.2)
[2017-01-08] MEDS: LIPASE/PROTEASE/AMYLASE 36,000 UNIT CAPSULE PO SCH ×3 (08:27→17:30)
[2017-01-08] MEDS: PANTOPRAZOLE 40 MG TABLET (FP) PO SCH (09:00)
[2017-01-08] MEDS: POLYETHYLENE GLYCOL 3350 119 GM BTL PO SCH (09:00)
[2017-01-08] MEDS: HEPARIN NA (PORCINE) 5,000 UNITS/ML 1ML VIAL SQ SCH ×2 (09:13→21:11)
[2017-01-08 14:05] LABS: HYPOCHROMIA 1+; PLATELET COMMENT2 NO CLOTTING DETECTED; PLATELET ESTIMATE ADEQUATE (NORMAL)
--- NOTE | 2017-01-08 14:42 | CONSULT ---
Consult Consult Specialty:: Surgery Reason for Consultation:: Dr. Singh - History of Present Illness Chief Complaint: abdominal pain History of Present Illness: The patient is a 41-year-old female, with a significant past medical history of diabetes, who presents to the ED with 3 days of headache, weakness, lightheadedness, and upper abdominal pain radiating to the back. Pt reports taking Aleve but with no relief of her symptoms. Upon examination, pt is experiencing upper abdominal pain and nausea and vomiting. She reports not being able to take her insulin today due to nausea. Pt threw up before arriving at the ED. Admission w/u consisted of abdominal US, CT scan of the abdomen and pelvis, and HIDA scan US - GB sludge CT scan - small pericholecystic fluid HIDA - report pending but GB is visualized Currently tolerating diet with no abdominal pain - History Source History Provided By: Patient Limitations to Obtaining History: No Limitations - Past Medical History ...LMP Comment: 10 years ago Endocrine: Yes: Diabetes Mellitus - Past Surgical History Past Surgical History: Yes: None - Alcohol/Substance Use Hx Alcohol Use: No - Smoking History Smoking history: Never smoked Have you smoked in the past 12 months: No Home Medications - Allergies Allergies/Adverse Reactions: Allergies Allergy/AdvReac Type Severity Reaction Status Date / Time No Known Allergies Allergy Verified 01/03/17 18:31 - Home Medications Home Medications: Ambulatory Orders Dapagliflozin Propanediol [Farxiga] 5 mg PO DAILY 01/04/17 Insulin (Levemir) [Levemir Flexpen -] 0 units SQ DAILY 01/04/17 Metformin HCl [Metformin HCl ER] 1,000 mg PO BID 01/04/17 Review of Systems - Review of Systems Constitutional: reports: No Symptoms Gastrointestinal: reports: Abdominal Pain (resolved) Physical Exam Vital Signs: Vital Signs Temperature 99.6 F 01/08/17 10:00 Pulse Rate 103 H 01/08/17 10:00 Respiratory Rate 18 01/08/17 10:00 Blood Pressure 127/66 01/08/17 10:00 O2 Sat by Pulse Oximetry (%) 99 01/08/17 09:00 Constitutional: Yes: Well Nourished, Calm Eyes: Yes: Conjunctiva Clear HENT: Yes: Normocephalic Neck: Yes: Supple Cardiovascular: Yes: Regular Rate and Rhythm Respiratory: Yes: CTA Bilaterally Gastrointestinal: Yes: Soft, Other (no epigastric or RUQ tenderness) ...Rectal Exam: Yes: Deferred Extremities: Yes: WNL Edema: No Labs: CBC, BMP 01/08/17 06:00 01/08/17 06:00 Imaging - Results Cat Scan: Report Reviewed, Image Reviewed Ultrasound: Report Reviewed, Image Reviewed (GB sludge) Other: Image Reviewed (HIDA scan - visualization of GB within minutes of injection) Problem List - Problems (1) Abdominal pain Assessment/Plan: Abdominal pain of unclear etiology at this time Possible biliary colic vs. gastritis/PUD/H. pylori infectiondiabetic gastropathy Recommend: No surgical intervention necessary at this time May require EGD/biospy F/U as outpatient in 2 weeks may require cholecystectomy if symptoms are determined to be of biliary origin Code(s): R10.9 - UNSPECIFIED ABDOMINAL PAIN
--- NOTE | 2017-01-08 16:57 | PN ---
Progress Note, Physician History of Present Illness: starting to feel better surgery note noted fevers now trending down wbc trending down - Current Medication List Current Medications: Active Medications Acetaminophen (Tylenol -) 650 mg PO Q6H PRN PRN Reason: FEVER OR PAIN Last Admin: 01/07/17 06:59 Dose: 650 mg Heparin Sodium (Porcine) (Heparin -) 5,000 unit SQ BID [facility] Last Admin: 01/08/17 09:13 Dose: 5,000 unit Ampicillin Sodium/Sulbactam (Sodium 3 gm/ Sodium Chloride) 100 mls @ 200 mls/ hr IVPB Q8H-IV RICHIE Last Admin: 01/08/17 12:13 Dose: 200 mls/hr Insulin Aspart (Novolog Vial Sliding Scale -) 1 vial SQ ACHS RICHIE PRN Reason: Protocol Last Admin: 01/08/17 12:18 Dose: Not Given Insulin Detemir (Levemir Vial) 35 units SQ AM [facility] Last Admin: 01/08/17 06:19 Dose: Not Given Insulin Detemir (Levemir Vial) 12 units SQ HS [facility] Last Admin: 01/07/17 21:56 Dose: 12 units Metoclopramide HCl (Reglan Injection -) 10 mg IVPB Q8H [facility] Last Admin: 01/08/17 12:14 Dose: Not Given Morphine Sulfate (Morphine Injection -) 4 mg IVPUSH Q6H PRN PRN Reason: PAIN Non-Formulary Medication (Dapagliflozin Propanediol [Farxiga]) 5 mg PO ACBK [facility] Last Admin: 01/08/17 06:19 Dose: 5 mg Ondansetron HCl (Zofran Injection) 4 mg IVPB Q4H PRN Pancrelipase (Creon Dr 36,000 Units Capsule) 1 cap PO TIDCM [facility] Last Admin: 01/08/17 12:13 Dose: 1 cap Pantoprazole Sodium (Protonix -) 40 mg PO DAILY [facility] Last Admin: 01/08/17 09:00 Dose: Not Given Polyethylene Glycol (Miralax (For Daily Use) -) 17 gm PO DAILY [facility] Last Admin: 01/08/17 09:00 Dose: Not Given - Objective Vital Signs: Vital Signs Temperature 99.6 F 01/08/17 10:00 Pulse Rate 103 H 01/08/17 10:00 Respiratory Rate 18 01/08/17 10:00 Blood Pressure 127/66 01/08/17 10:00 O2 Sat by Pulse Oximetry (%) 99 01/08/17 09:00 Constitutional: Yes: No Distress, Calm Cardiovascular: Yes: Regular Rate and Rhythm Respiratory: Yes: Regular, CTA Bilaterally Gastrointestinal: Yes: Normal Bowel Sounds, Soft Musculoskeletal: Yes: WNL Extremities: Yes: WNL Neurological: Yes: Alert, Oriented Psychiatric: Yes: Alert, Oriented Labs: CBC, BMP 01/08/17 06:00 01/08/17 06:00 Assessment/Plan uncontrolled dm dehydration leukocytosis dyspepsia plan patient changed to unasyn now fevers better will continue and watch wbc trending down
--- NOTE | 2017-01-08 22:00 | PN ---
GI Progress Note Subjective: Patient states she has absolutely no pain LFTS have normalized. Only alk phos mildly elevated - Objective Vital Signs: Vital Signs Temperature 99.7 F H 01/08/17 17:15 Pulse Rate 97 H 01/08/17 17:15 Respiratory Rate 18 01/08/17 17:15 Blood Pressure 127/68 01/08/17 17:15 O2 Sat by Pulse Oximetry (%) 99 01/08/17 09:00 Constitutional: Well Nourished, No Distress Cardiovascular: Yes: Regular Rate and Rhythm Respiratory: Yes: CTA Bilaterally Gastrointestinal Inspection: Yes: WNL ...Auscultate: Yes: Normoactive Bowel Sounds Labs: CBC, BMP 01/08/17 06:00 01/08/17 06:00 Assessment/Plan Likely passed gallstone/sludge. Patient tolerating diet Information furnished and she is encouraged to follow-up with me as an opt. Start actigal 300 BID and continue as opt
[2017-01-08] MEDS: URSODIOL 300 MG CAPSULE PO SCH (22:44)
--- NOTE | 2017-01-09 00:04 | PN ---
Progress Note, Physician History of Present Illness: No new complaints - Current Medication List Current Medications: Active Medications Acetaminophen (Tylenol -) 650 mg PO Q6H PRN PRN Reason: FEVER OR PAIN Last Admin: 01/07/17 06:59 Dose: 650 mg Heparin Sodium (Porcine) (Heparin -) 5,000 unit SQ BID [facility] Last Admin: 01/08/17 21:11 Dose: 5,000 unit Ampicillin Sodium/Sulbactam (Sodium 3 gm/ Sodium Chloride) 100 mls @ 200 mls/ hr IVPB Q8H-IV RICHIE Last Admin: 01/08/17 17:30 Dose: 200 mls/hr Insulin Aspart (Novolog Vial Sliding Scale -) 1 vial SQ ACHS [facility]ICHIE PRN Reason: Protocol Last Admin: 01/08/17 21:16 Dose: 2 units Insulin Detemir (Levemir Vial) 35 units SQ AM [facility] Last Admin: 01/08/17 06:19 Dose: Not Given Insulin Detemir (Levemir Vial) 12 units SQ HS [facility] Last Admin: 01/08/17 21:18 Dose: 12 units Metoclopramide HCl (Reglan Injection -) 10 mg IVPB Q8H [facility] Last Admin: 01/08/17 21:11 Dose: 10 mg Non-Formulary Medication (Dapagliflozin Propanediol [Farxiga]) 5 mg PO ACBK [facility] Last Admin: 01/08/17 06:19 Dose: 5 mg Ondansetron HCl (Zofran Injection) 4 mg IVPB Q4H PRN Pancrelipase (Creon Dr 36,000 Units Capsule) 1 cap PO TIDCM [facility] Last Admin: 01/08/17 17:30 Dose: 1 cap Pantoprazole Sodium (Protonix -) 40 mg PO DAILY [facility] Last Admin: 01/08/17 09:00 Dose: Not Given Polyethylene Glycol (Miralax (For Daily Use) -) 17 gm PO DAILY [facility] Last Admin: 01/08/17 09:00 Dose: Not Given Ursodiol (Actigal -) 300 mg PO BID [facility] Last Admin: 01/08/17 22:44 Dose: 300 mg - Objective Vital Signs: Vital Signs Temperature 98.8 F 01/08/17 22:00 Pulse Rate 92 H 01/08/17 22:00 Respiratory Rate 18 01/08/17 22:00 Blood Pressure 139/76 01/08/17 22:00 O2 Sat by Pulse Oximetry (%) 99 01/08/17 21:00 Constitutional: Yes: No Distress Eyes: Yes: WNL HENT: Yes: WNL Neck: Yes: WNL, Supple Cardiovascular: Yes: WNL, Regular Rate and Rhythm Respiratory: Yes: WNL, Regular, CTA Bilaterally Gastrointestinal: Yes: WNL, Normal Bowel Sounds, Soft Labs: CBC, BMP 01/08/17 06:00 01/08/17 06:00 Problem List - Problems (1) Abdominal pain Code(s): R10.9 - UNSPECIFIED ABDOMINAL PAIN (2) DKA (diabetic ketoacidoses) Code(s): E13.10 - OTH DIABETES MELLITUS WITH KETOACIDOSIS WITHOUT COMA (3) Leukocytosis Code(s): D72.829 - ELEVATED WHITE BLOOD CELL COUNT, UNSPECIFIED (4) Acute renal failure Code(s): N17.9 - ACUTE KIDNEY FAILURE, UNSPECIFIED
[2017-01-09] MEDS ORDERED: PT OWN MED DRAWER 7, Y5N ONE ×5 (01:16→20:57)
[2017-01-09] MEDS: AMPICILLIN NA/SULBACTAM NA 3 GM in SODIUM CHLORIDE 100 ML IVPB SCH ×3 (01:27→17:27)
[2017-01-09] MEDS: METOCLOPRAMIDE HCL INJECTION 10 MG/2 ML VIAL IVPB SCH ×3 (05:05→20:43)
[2017-01-09] MEDS: INSULIN SLIDING SCALE (NOVOLOG) 1 VIAL SQ SCH ×4 (06:17→23:04)
[2017-01-09] MEDS: PATIENT'S OWN MEDICATION (NON-FORMULARY) (Dapagliflozin Propanediol [Farxiga] 5 MG) PO SCH (06:27)
[2017-01-09] MEDS: INSULIN DETEMIR 100 UNITS/ML MDV SQ SCH ×2 (07:04→23:06)
[2017-01-09] MEDS: LIPASE/PROTEASE/AMYLASE 36,000 UNIT CAPSULE PO SCH ×3 (08:27→17:27)
[2017-01-09] MEDS: HEPARIN NA (PORCINE) 5,000 UNITS/ML 1ML VIAL SQ SCH ×2 (10:18→23:07)
[2017-01-09] MEDS: URSODIOL 300 MG CAPSULE PO SCH ×2 (10:19→23:07)
[2017-01-09] MEDS: POLYETHYLENE GLYCOL 3350 119 GM BTL PO SCH (10:19)
[2017-01-09] MEDS: PANTOPRAZOLE 40 MG TABLET (FP) PO SCH (10:19)
--- NOTE | 2017-01-09 16:03 | PN ---
Progress Note, Physician History of Present Illness: patient stable looks and feels much better has been afebrile now - Current Medication List Current Medications: Active Medications Acetaminophen (Tylenol -) 650 mg PO Q6H PRN PRN Reason: FEVER OR PAIN Last Admin: 01/07/17 06:59 Dose: 650 mg Heparin Sodium (Porcine) (Heparin -) 5,000 unit SQ BID [facility] Last Admin: 01/09/17 10:18 Dose: 5,000 unit Ampicillin Sodium/Sulbactam (Sodium 3 gm/ Sodium Chloride) 100 mls @ 200 mls/ hr IVPB Q8H-IV [facility] Last Admin: 01/09/17 10:19 Dose: 200 mls/hr Insulin Aspart (Novolog Vial Sliding Scale -) 1 vial SQ ACHS [facility] PRN Reason: Protocol Last Admin: 01/09/17 12:36 Dose: Not Given Insulin Detemir (Levemir Vial) 35 units SQ AM [facility] Last Admin: 01/09/17 07:04 Dose: 35 units Insulin Detemir (Levemir Vial) 12 units SQ HS [facility] Last Admin: 01/08/17 21:18 Dose: 12 units Metoclopramide HCl (Reglan Injection -) 10 mg IVPB Q8H [facility] Last Admin: 01/09/17 11:53 Dose: Not Given Non-Formulary Medication (Dapagliflozin Propanediol [Farxiga]) 5 mg PO ACBK [facility] Last Admin: 01/09/17 06:27 Dose: 5 mg Ondansetron HCl (Zofran Injection) 4 mg IVPB Q4H PRN Pancrelipase (Creon Dr 36,000 Units Capsule) 1 cap PO TIDCM [facility] Last Admin: 01/09/17 12:34 Dose: 1 cap Pantoprazole Sodium (Protonix -) 40 mg PO DAILY [facility] Last Admin: 01/09/17 10:19 Dose: 40 mg Polyethylene Glycol (Miralax (For Daily Use) -) 17 gm PO DAILY [facility] Last Admin: 01/09/17 10:19 Dose: Not Given Ursodiol (Actigal -) 300 mg PO BID [facility] Last Admin: 01/09/17 10:19 Dose: 300 mg - Objective Vital Signs: Vital Signs Temperature 98.1 F 01/09/17 15:02 Pulse Rate 91 H 01/09/17 15:02 Respiratory Rate 16 01/09/17 15:02 Blood Pressure 134/78 01/09/17 15:02 O2 Sat by Pulse Oximetry (%) 99 01/08/17 21:00 Constitutional: Yes: No Distress, Calm HENT: Yes: Atraumatic Neck: Yes: Supple, Trachea Midline Cardiovascular: Yes: Regular Rate and Rhythm Respiratory: Yes: Regular, CTA Bilaterally Gastrointestinal: Yes: Normal Bowel Sounds, Soft Extremities: Yes: WNL Labs: CBC, BMP 01/08/17 06:00 01/08/17 06:00 Assessment/Plan uncontrolled dm dehydration leukocytosis dyspepsia plan continue current mgmt if patient remains afebrile will change to oral abx
--- NOTE | 2017-01-09 23:47 | PN ---
Progress Note, Physician History of Present Illness: No new complaints - Current Medication List Current Medications: Active Medications Acetaminophen (Tylenol -) 650 mg PO Q6H PRN PRN Reason: FEVER OR PAIN Last Admin: 01/07/17 06:59 Dose: 650 mg Heparin Sodium (Porcine) (Heparin -) 5,000 unit SQ BID [facility]S [facility] 234 BEDS AT [facility] Last Admin: 01/09/17 23:07 Dose: 5,000 unit Ampicillin Sodium/Sulbactam (Sodium 3 gm/ Sodium Chloride) 100 mls @ 200 mls/ hr IVPB Q8H-IV [facility] Last Admin: 01/09/17 17:27 Dose: 200 mls/hr Insulin Aspart (Novolog Vial Sliding Scale -) 1 vial SQ ACHS [facility] PRN Reason: Protocol Last Admin: 01/09/17 23:04 Dose: 2 units Insulin Detemir (Levemir Vial) 35 units SQ AM [facility]S [facility]CLUDE 234 BEDS AT [facility] Last Admin: 01/09/17 07:04 Dose: 35 units Insulin Detemir (Levemir Vial) 12 units SQ HS [facility]S INCLUDE 234 BEDS AT [facility] Last Admin: 01/09/17 23:06 Dose: 12 units Metoclopramide HCl (Reglan Injection -) 10 mg IVPB Q8H COUNTS INCLUDE 234 BEDS AT [facility] Last Admin: 01/09/17 20:43 Dose: Not Given Non-Formulary Medication (Dapagliflozin Propanediol [Farxiga]) 5 mg PO ACBK COUNTS INCLUDE 234 BEDS AT [facility] Last Admin: 01/09/17 06:27 Dose: 5 mg Ondansetron HCl (Zofran Injection) 4 mg IVPB Q4H PRN Pancrelipase (Creon Dr 36,000 Units Capsule) 1 cap PO TIDCM COUNTS INCLUDE 234 BEDS AT [facility] Last Admin: 01/09/17 17:27 Dose: 1 cap Pantoprazole Sodium (Protonix -) 40 mg PO DAILY [facility]CLUDE 234 BEDS AT [facility] Last Admin: 01/09/17 10:19 Dose: 40 mg Polyethylene Glycol (Miralax (For Daily Use) -) 17 gm PO DAILY [facility]S [facility]CLUDE 234 BEDS AT [facility] Last Admin: 01/09/17 10:19 Dose: Not Given Ursodiol (Actigal -) 300 mg PO BID [facility]S INCLUDE 234 BEDS AT [facility] Last Admin: 01/09/17 23:07 Dose: 300 mg - Objective Vital Signs: Vital Signs Temperature 99.5 F 01/09/17 16:25 Pulse Rate 89 01/09/17 16:25 Respiratory Rate 18 01/09/17 16:25 Blood Pressure 139/74 01/09/17 16:25 O2 Sat by Pulse Oximetry (%) 94 L 01/09/17 09:00 Constitutional: Yes: No Distress Eyes: Yes: WNL HENT: Yes: WNL Neck: Yes: WNL, Supple Cardiovascular: Yes: WNL, Regular Rate and Rhythm Respiratory: Yes: WNL, Regular, CTA Bilaterally Gastrointestinal: Yes: WNL, Normal Bowel Sounds, Soft Labs: CBC, BMP 01/08/17 06:00 01/08/17 06:00 Problem List - Problems (1) Abdominal pain Code(s): R10.9 - UNSPECIFIED ABDOMINAL PAIN (2) DKA (diabetic ketoacidoses) Code(s): E13.10 - OTH DIABETES MELLITUS WITH KETOACIDOSIS WITHOUT COMA (3) Leukocytosis Code(s): D72.829 - ELEVATED WHITE BLOOD CELL COUNT, UNSPECIFIED (4) Acute renal failure Code(s): N17.9 - ACUTE KIDNEY FAILURE, UNSPECIFIED
--- NOTE | 2017-01-10 00:37 | PN ---
Progress Note (short form) - Note Progress Note: since had episode dka would avoid sglt2 inhibitors, blood sugar still controlled on insulin Current Active Problems Abdominal pain (Acute) Acute renal failure (Acute) DKA (diabetic ketoacidoses) (Acute) Diabetes mellitus, insulin dependent (IDDM), uncontrolled (Acute) Dyspepsia (Acute) Leukocytosis (Acute) UTI (urinary tract infection) (Acute) Abnormal Lab Results 01/09/17 06:15 GGT 143 H Laboratory Results - last 24 hr 01/09/17 01/09/17 01/09/17 05:53 06:15 12:35 POC Glucometer 91 136 GGT 143 H 01/09/17 01/09/17 17:28 23:02 POC Glucometer 95 153 GGT plan: stop sglt2 inhibitor custodial insulin use needed continue levemir and novolog insulin Current Medications Generic Name Dose Route Start Last Admin Trade Name Freq PRN Reason Stop Dose Admin Acetaminophen 650 mg 01/06/17 07:21 01/07/17 06:59 Tylenol - PO 650 mg Q6H PRN Administration FEVER OR PAIN Heparin Sodium (Porcine) 5,000 unit 01/06/17 10:00 01/09/17 23:07 Heparin - SQ 5,000 unit BID [facility] Administration Ampicillin Sodium/Sulbactam 100 mls @ 200 mls/hr 01/07/17 11:45 01/09/17 17:27 Sodium 3 gm/ Sodium Chloride IVPB 200 mls/hr Q8H-IV [facility] Administration Insulin Aspart 1 vial 01/04/17 16:30 01/09/17 23:04 Novolog Vial Sliding Scale - SQ 2 units ACHS [facility] Administration Protocol Insulin Detemir 7 units 01/10/17 00:32 Levemir Vial SQ HS [facility] Insulin Detemir 25 units 01/10/17 00:33 Levemir Vial SQ AM [facility] Metoclopramide HCl 10 mg 01/04/17 20:30 01/09/17 20:43 Reglan Injection - IVPB Not Given Q8H [facility] Ondansetron HCl 4 mg 01/05/17 10:00 Zofran Injection IVPB Q4H PRN Pancrelipase 1 cap 01/06/17 17:30 01/09/17 17:[address] 36,000 Units Capsule PO 1 cap TIDCM [facility] Administration Pantoprazole Sodium 40 mg 01/06/17 10:00 01/09/17 10:19 Protonix - PO 40 mg DAILY [facility] Administration Polyethylene Glycol 17 gm 01/07/17 17:00 01/09/17 10:19 Miralax (For Daily Use) - PO Not Given DAILY [facility] Ursodiol 300 mg 01/08/17 22:00 01/09/17 23:07 Actigal - PO 300 mg BID [facility] Administration Problem List - Problems (1) DKA (diabetic ketoacidoses) Code(s): E13.10 - OTH DIABETES MELLITUS WITH KETOACIDOSIS WITHOUT COMA (2) Dyspepsia Code(s): R10.13 - EPIGASTRIC PAIN (3) Diabetes mellitus, insulin dependent (IDDM), uncontrolled Code(s): E10.65 - TYPE 1 DIABETES MELLITUS WITH HYPERGLYCEMIA
[2017-01-10] MEDS: AMPICILLIN NA/SULBACTAM NA 3 GM in SODIUM CHLORIDE 100 ML IVPB SCH ×2 (02:34→10:12)
[2017-01-10] MEDS: METOCLOPRAMIDE HCL INJECTION 10 MG/2 ML VIAL IVPB SCH ×4 (04:35→20:36)
[2017-01-10] MEDS: INSULIN SLIDING SCALE (NOVOLOG) 1 VIAL SQ SCH ×4 (06:14→22:37)
[2017-01-10] MEDS: INSULIN DETEMIR 100 UNITS/ML MDV SQ SCH ×2 (06:15→22:36)
[2017-01-10] MEDS ORDERED: PT OWN MED DRAWER 7, Y5N ONE ×2 (08:27→10:10)
[2017-01-10] MEDS: LIPASE/PROTEASE/AMYLASE 36,000 UNIT CAPSULE PO SCH ×3 (08:31→17:49)
[2017-01-10] MEDS: URSODIOL 300 MG CAPSULE PO SCH ×2 (10:11→22:36)
[2017-01-10] MEDS: PANTOPRAZOLE 40 MG TABLET (FP) PO SCH (10:11)
[2017-01-10] MEDS: HEPARIN NA (PORCINE) 5,000 UNITS/ML 1ML VIAL SQ SCH ×2 (10:12→22:36)
[2017-01-10] MEDS: POLYETHYLENE GLYCOL 3350 119 GM BTL PO SCH (10:13)
--- NOTE | 2017-01-10 13:51 | PN ---
Progress Note, Physician History of Present Illness: stable temp still in 99 no complaints - Current Medication List Current Medications: Active Medications Acetaminophen (Tylenol -) 650 mg PO Q6H PRN PRN Reason: FEVER OR PAIN Last Admin: 01/07/17 06:59 Dose: 650 mg Heparin Sodium (Porcine) (Heparin -) 5,000 unit SQ BID [facility] Last Admin: 01/10/17 10:12 Dose: 5,000 unit Ampicillin Sodium/Sulbactam (Sodium 3 gm/ Sodium Chloride) 100 mls @ 200 mls/ hr IVPB Q8H-IV [facility] Last Admin: 01/10/17 10:12 Dose: 200 mls/hr Insulin Aspart (Novolog Vial Sliding Scale -) 1 vial SQ ACHS [facility] PRN Reason: Protocol Last Admin: 01/10/17 11:37 Dose: 2 units Insulin Detemir (Levemir Vial) 7 units SQ HS [facility] Insulin Detemir (Levemir Vial) 25 units SQ AM [facility] Last Admin: 01/10/17 06:15 Dose: 25 unit Metoclopramide HCl (Reglan Injection -) 10 mg IVPB Q8H [facility] Last Admin: 01/10/17 12:44 Dose: Not Given Ondansetron HCl (Zofran Injection) 4 mg IVPB Q4H PRN Pancrelipase (Creon Dr 36,000 Units Capsule) 1 cap PO TIDCM [facility] Last Admin: 01/10/17 12:44 Dose: 1 cap Pantoprazole Sodium (Protonix -) 40 mg PO DAILY [facility] Last Admin: 01/10/17 10:11 Dose: 40 mg Polyethylene Glycol (Miralax (For Daily Use) -) 17 gm PO DAILY [facility] Last Admin: 01/10/17 10:13 Dose: 17 gm Ursodiol (Actigal -) 300 mg PO BID [facility] Last Admin: 01/10/17 10:11 Dose: 300 mg - Objective Vital Signs: Vital Signs Temperature 99.4 F 01/10/17 06:00 Pulse Rate 93 H 01/10/17 06:00 Respiratory Rate 20 01/10/17 06:00 Blood Pressure 126/70 01/10/17 06:00 O2 Sat by Pulse Oximetry (%) 94 L 01/09/17 21:00 Constitutional: Yes: No Distress, Calm Cardiovascular: Yes: Regular Rate and Rhythm Respiratory: Yes: Regular, CTA Bilaterally Gastrointestinal: Yes: Normal Bowel Sounds, Soft Musculoskeletal: Yes: WNL Extremities: Yes: WNL Neurological: Yes: Alert, Oriented Psychiatric: Yes: Alert, Oriented Labs: CBC, BMP 01/08/17 06:00 01/08/17 06:00 Assessment/Plan uncontrolled dm dehydration leukocytosis dyspepsia DKA (diabetic ketoacidoses) Code(s): E13.10 - OTH DIABETES MELLITUS WITH KETOACIDOSIS WITHOUT COMA Dyspepsia Code(s): R10.13 - EPIGASTRIC PAIN Diabetes mellitus, insulin dependent (IDDM), uncontrolled Code(s): E10.65 - TYPE 1 DIABETES MELLITUS WITH HYPERGLYCEMIA plan will switch to augmentin monitor temp on oral abx if stable then we will give the course for 5 more days rest as per laury
[2017-01-10] MEDS: AMOX TR/POT CLAV 875MG/125MG TABLETS (FP) PO SCH (17:49)
[2017-01-10] MEDS ORDERED: INSULIN (NOVOLOG) ASPART 100 UNITS/ML 10ML VIAL ONE (20:38)
--- NOTE | 2017-01-10 22:03 | PN ---
Progress Note, Physician History of Present Illness: Pt feeling better and tolerating diet - Current Medication List Current Medications: Active Medications Acetaminophen (Tylenol -) 650 mg PO Q6H PRN PRN Reason: FEVER OR PAIN Last Admin: 01/07/17 06:59 Dose: 650 mg Amoxicillin/Clavulanate Potassium (Augmentin - 875mg Tablet) 1 tab PO BID@0800, 1730 [facility] Last Admin: 01/10/17 17:49 Dose: 1 tab Heparin Sodium (Porcine) (Heparin -) 5,000 unit SQ BID [facility] Last Admin: 01/10/17 10:12 Dose: 5,000 unit Insulin Aspart (Novolog Vial Sliding Scale -) 1 vial SQ ACHS [facility] PRN Reason: Protocol Last Admin: 01/10/17 17:56 Dose: Not Given Insulin Detemir (Levemir Vial) 7 units SQ HS [facility] Insulin Detemir (Levemir Vial) 25 units SQ AM [facility] Last Admin: 01/10/17 06:15 Dose: 25 unit Metoclopramide HCl (Reglan Injection -) 10 mg IVPB Q8H [facility] Last Admin: 01/10/17 20:36 Dose: Not Given Ondansetron HCl (Zofran Injection) 4 mg IVPB Q4H PRN Pancrelipase (Creon Dr 36,000 Units Capsule) 1 cap PO TIDCM [facility] Last Admin: 01/10/17 17:49 Dose: 1 cap Pantoprazole Sodium (Protonix -) 40 mg PO DAILY [facility] Last Admin: 01/10/17 10:11 Dose: 40 mg Polyethylene Glycol (Miralax (For Daily Use) -) 17 gm PO DAILY [facility] Last Admin: 01/10/17 10:13 Dose: 17 gm Ursodiol (Actigal -) 300 mg PO BID [facility] Last Admin: 01/10/17 10:11 Dose: 300 mg - Objective Vital Signs: Vital Signs Temperature 98.9 F 01/10/17 15:40 Pulse Rate 89 01/10/17 15:40 Respiratory Rate 16 01/10/17 15:40 Blood Pressure 116/66 01/10/17 15:40 O2 Sat by Pulse Oximetry (%) 98 01/10/17 09:00 Constitutional: Yes: No Distress Eyes: Yes: WNL HENT: Yes: WNL Neck: Yes: WNL, Supple Cardiovascular: Yes: WNL, Regular Rate and Rhythm Respiratory: Yes: WNL, Regular, CTA Bilaterally Gastrointestinal: Yes: WNL, Normal Bowel Sounds, Soft Labs: CBC, BMP 01/08/17 06:00 01/08/17 06:00 Problem List - Problems (1) Leukocytosis Assessment/Plan: Cont augmentin Check wbc in am DC planning for am Code(s): D72.829 - ELEVATED WHITE BLOOD CELL COUNT, UNSPECIFIED (2) Abdominal pain Assessment/Plan: LFT's returned to baseline CT noted Dyspepsia/Gastroparesis Cont protonix/reglan DC planning for am Code(s): R10.9 - UNSPECIFIED ABDOMINAL PAIN (3) DKA (diabetic ketoacidoses) Assessment/Plan: Resolved Cont novolog w/ sliding scale/farxiga Code(s): E13.10 - OTH DIABETES MELLITUS WITH KETOACIDOSIS WITHOUT COMA (4) Acute renal failure Code(s): N17.9 - ACUTE KIDNEY FAILURE, UNSPECIFIED
[2017-01-11] MEDS: METOCLOPRAMIDE HCL INJECTION 10 MG/2 ML VIAL IVPB SCH ×3 (04:30→20:34)
[2017-01-11] MEDS: INSULIN SLIDING SCALE (NOVOLOG) 1 VIAL SQ SCH ×4 (06:07→21:06)
[2017-01-11] MEDS: INSULIN DETEMIR 100 UNITS/ML MDV SQ SCH ×2 (06:10→21:06)
[2017-01-11] MEDS ORDERED: PT OWN MED DRAWER 7, Y5N ONE (08:24)
[2017-01-11] MEDS: AMOX TR/POT CLAV 875MG/125MG TABLETS (FP) PO SCH ×2 (08:28→17:21)
[2017-01-11] MEDS: LIPASE/PROTEASE/AMYLASE 36,000 UNIT CAPSULE PO SCH ×3 (09:36→17:21)
[2017-01-11] MEDS: PANTOPRAZOLE 40 MG TABLET (FP) PO SCH (09:51)
[2017-01-11] MEDS: URSODIOL 300 MG CAPSULE PO SCH ×2 (09:51→21:03)
[2017-01-11] MEDS: HEPARIN NA (PORCINE) 5,000 UNITS/ML 1ML VIAL SQ SCH ×2 (09:51→21:03)
[2017-01-11] MEDS: POLYETHYLENE GLYCOL 3350 119 GM BTL PO SCH (09:51)
--- NOTE | 2017-01-11 14:09 | PN ---
Progress Note, Physician Chief Complaint: clinically patient is stable had a low grade temp will check labs tomorrow - Current Medication List Current Medications: Active Medications Acetaminophen (Tylenol -) 650 mg PO Q6H PRN PRN Reason: FEVER OR PAIN Last Admin: 01/07/17 06:59 Dose: 650 mg Amoxicillin/Clavulanate Potassium (Augmentin - 875mg Tablet) 1 tab PO BID@0800, 1730 [facility] Last Admin: 01/11/17 08:28 Dose: 1 tab Heparin Sodium (Porcine) (Heparin -) 5,000 unit SQ BID [facility] Last Admin: 01/11/17 09:51 Dose: 5,000 unit Insulin Aspart (Novolog Vial Sliding Scale -) 1 vial SQ ACHS [facility] PRN Reason: Protocol Last Admin: 01/11/17 11:45 Dose: Not Given Insulin Detemir (Levemir Vial) 7 units SQ HS [facility] Last Admin: 01/10/17 22:36 Dose: 7 unit Insulin Detemir (Levemir Vial) 25 units SQ AM [facility] Last Admin: 01/11/17 06:10 Dose: 25 unit Metoclopramide HCl (Reglan Injection -) 10 mg IVPB Q8H [facility] Last Admin: 01/11/17 12:42 Dose: Not Given Ondansetron HCl (Zofran Injection) 4 mg IVPB Q4H PRN Pancrelipase (Creon Dr 36,000 Units Capsule) 1 cap PO TIDCM [facility] Last Admin: 01/11/17 11:45 Dose: 1 cap Pantoprazole Sodium (Protonix -) 40 mg PO DAILY [facility] Last Admin: 01/11/17 09:51 Dose: 40 mg Polyethylene Glycol (Miralax (For Daily Use) -) 17 gm PO DAILY [facility] Last Admin: 01/11/17 09:51 Dose: 17 gm Ursodiol (Actigal -) 300 mg PO BID [facility] Last Admin: 01/11/17 09:51 Dose: 300 mg - Objective Vital Signs: Vital Signs Temperature 99.4 F 01/11/17 06:00 Pulse Rate 94 H 01/11/17 06:00 Respiratory Rate 20 01/11/17 06:00 Blood Pressure 122/70 01/11/17 06:00 O2 Sat by Pulse Oximetry (%) 98 01/10/17 21:00 Constitutional: Yes: No Distress, Calm Eyes: Yes: Conjunctiva Clear HENT: Yes: Atraumatic, Normocephalic Neck: Yes: Supple, Trachea Midline Cardiovascular: Yes: Regular Rate and Rhythm Respiratory: Yes: Regular, CTA Bilaterally Gastrointestinal: Yes: Normal Bowel Sounds, Soft Musculoskeletal: Yes: WNL Extremities: Yes: WNL Neurological: Yes: Alert, Oriented Psychiatric: Yes: Alert, Oriented Labs: CBC, BMP 01/08/17 06:00 01/08/17 06:00 Assessment/Plan uncontrolled dm dehydration leukocytosis dyspepsia DKA (diabetic ketoacidoses) Code(s): E13.10 - OTH DIABETES MELLITUS WITH KETOACIDOSIS WITHOUT COMA Dyspepsia Code(s): R10.13 - EPIGASTRIC PAIN Diabetes mellitus, insulin dependent (IDDM), uncontrolled Code(s): E10.65 - TYPE 1 DIABETES MELLITUS WITH HYPERGLYCEMIA plan continue augmentin will check liver function tests--ordered if patient is 99 tomorrow and liver functions are normal we will be able to send on oral augmentin for another couple of days
[2017-01-11 16:33] LABS: MCH 27.8 pg (25.7-33.7); MCHC 33.7 g/dl (32.0-36.0); MEAN CELL VOLUME 82.5 fl (80-96); MEAN PLT VOLUME 7.5 fl (7.5-11.1); PLATELET COUNT 451 K/MM3 (134-434); RDW 14.7 % (11.6-15.6); WHITE BLOOD COUNT 11.1 K/mm3 (4.0-10.0)
[2017-01-11 16:58] LABS: SGOT/AST 38 U/L (15-37); SGPT/ALT 53 U/L (12-78)
[2017-01-11 17:03] LABS: ALBUMIN 2.1 g/dl (3.4-5.0); ALK PHOS 167 U/L (45-117); ANION GAP 9 (8-16); BILIRUBIN,TOTAL 0.3 mg/dL (0.2-1.0); CALCIUM 8.1 mg/dL (8.5-10.1); CO2 30 mmol/L (21-32); GLUCOSE,RANDOM 138 mg/dL (74-106); TOT PROT 6.6 g/dl (6.4-8.2)
[2017-01-11] MEDS ORDERED: INSULIN (NOVOLOG) ASPART 100 UNITS/ML 10ML VIAL ONE ×2 (17:27→20:55)
[2017-01-11 18:49] LABS: PLATELET ESTIMATE ADEQUATE (NORMAL)
--- NOTE | 2017-01-12 00:49 | PN ---
Progress Note, Physician History of Present Illness: Pt seen and examined 01/11/17 however note is being entered now - Current Medication List Current Medications: Active Medications Acetaminophen (Tylenol -) 650 mg PO Q6H PRN PRN Reason: FEVER OR PAIN Last Admin: 01/07/17 06:59 Dose: 650 mg Amoxicillin/Clavulanate Potassium (Augmentin - 875mg Tablet) 1 tab PO BID@0800, 1730 [facility] Last Admin: 01/11/17 17:21 Dose: 1 tab Heparin Sodium (Porcine) (Heparin -) 5,000 unit SQ BID [facility] Last Admin: 01/11/17 21:03 Dose: 5,000 unit Insulin Aspart (Novolog Vial Sliding Scale -) 1 vial SQ ACHS [facility] PRN Reason: Protocol Last Admin: 01/11/17 21:06 Dose: 2 units Insulin Detemir (Levemir Vial) 7 units SQ HS [facility] Last Admin: 01/11/17 21:06 Dose: 7 unit Insulin Detemir (Levemir Vial) 25 units SQ AM [facility] Last Admin: 01/11/17 06:10 Dose: 25 unit Metoclopramide HCl (Reglan Injection -) 10 mg IVPB Q8H [facility] Last Admin: 01/11/17 20:34 Dose: Not Given Ondansetron HCl (Zofran Injection) 4 mg IVPB Q4H PRN Pancrelipase (Creon Dr 36,000 Units Capsule) 1 cap PO TIDCM [facility] Last Admin: 01/11/17 17:21 Dose: 1 cap Pantoprazole Sodium (Protonix -) 40 mg PO DAILY [facility] Last Admin: 01/11/17 09:51 Dose: 40 mg Polyethylene Glycol (Miralax (For Daily Use) -) 17 gm PO DAILY [facility] Last Admin: 01/11/17 09:51 Dose: 17 gm Ursodiol (Actigal -) 300 mg PO BID [facility] Last Admin: 01/11/17 21:03 Dose: 300 mg - Objective Vital Signs: Vital Signs Temperature 100.0 F H 01/11/17 22:00 Pulse Rate 89 01/11/17 22:00 Respiratory Rate 18 01/11/17 22:00 Blood Pressure 141/76 01/11/17 22:00 O2 Sat by Pulse Oximetry (%) 98 01/11/17 21:00 Constitutional: Yes: No Distress Eyes: Yes: WNL HENT: Yes: WNL Neck: Yes: WNL, Supple Cardiovascular: Yes: WNL, Regular Rate and Rhythm Respiratory: Yes: WNL, Regular, CTA Bilaterally Gastrointestinal: Yes: WNL, Normal Bowel Sounds, Soft Labs: CBC, BMP 01/11/17 15:30 01/11/17 15:45 Problem List - Problems (1) Leukocytosis Code(s): D72.829 - ELEVATED WHITE BLOOD CELL COUNT, UNSPECIFIED (2) Abdominal pain Code(s): R10.9 - UNSPECIFIED ABDOMINAL PAIN (3) DKA (diabetic ketoacidoses) Code(s): E13.10 - OTH DIABETES MELLITUS WITH KETOACIDOSIS WITHOUT COMA (4) Acute renal failure Code(s): N17.9 - ACUTE KIDNEY FAILURE, UNSPECIFIED
[2017-01-12] MEDS: METOCLOPRAMIDE HCL INJECTION 10 MG/2 ML VIAL IVPB SCH ×3 (04:18→21:28)
[2017-01-12] MEDS: ACETAMINOPHEN 325 MG TABLET (FP) PO PRN ×2 (04:33→18:17)
[2017-01-12] MEDS: INSULIN DETEMIR 100 UNITS/ML MDV SQ SCH ×2 (06:10→21:33)
[2017-01-12] MEDS: INSULIN SLIDING SCALE (NOVOLOG) 1 VIAL SQ SCH ×4 (06:12→21:33)
[2017-01-12 08:22] LABS: MCH 28.3 pg (25.7-33.7); MCHC 34.2 g/dl (32.0-36.0); MEAN CELL VOLUME 82.8 fl (80-96); MEAN PLT VOLUME 7.4 fl (7.5-11.1); PLATELET COUNT 478 K/MM3 (134-434); RDW 14.7 % (11.6-15.6); WHITE BLOOD COUNT 13.8 K/mm3 (4.0-10.0)
[2017-01-12 08:27] LABS: ALBUMIN 2.3 g/dl (3.4-5.0); ANION GAP 9 (8-16); CALCIUM 8.2 mg/dL (8.5-10.1); CO2 29 mmol/L (21-32); GLUCOSE,RANDOM 111 mg/dL (74-106)
[2017-01-12 08:31] LABS: ALK PHOS 160 U/L (45-117); BILIRUBIN,TOTAL 0.5 mg/dL (0.2-1.0); SGOT/AST 32 U/L (15-37); SGPT/ALT 49 U/L (12-78)
[2017-01-12] MEDS ORDERED: PT OWN MED DRAWER 7, Y5N ONE (08:41)
[2017-01-12] MEDS: LIPASE/PROTEASE/AMYLASE 36,000 UNIT CAPSULE PO SCH ×3 (08:42→18:11)
[2017-01-12] MEDS: AMOX TR/POT CLAV 875MG/125MG TABLETS (FP) PO SCH (08:42)
[2017-01-12] MEDS: POLYETHYLENE GLYCOL 3350 119 GM BTL PO SCH (10:45)
[2017-01-12] MEDS: PANTOPRAZOLE 40 MG TABLET (FP) PO SCH (10:45)
[2017-01-12] MEDS: HEPARIN NA (PORCINE) 5,000 UNITS/ML 1ML VIAL SQ SCH ×2 (10:45→21:33)
[2017-01-12] MEDS: URSODIOL 300 MG CAPSULE PO SCH ×2 (10:45→21:33)
--- NOTE | 2017-01-12 14:19 | PN ---
Progress Note, Physician History of Present Illness: patient was doing well yesterday spiked again high grade fever on oral abx exact cause is still not known patient now feels well - Current Medication List Current Medications: Active Medications Acetaminophen (Tylenol -) 650 mg PO Q6H PRN PRN Reason: FEVER OR PAIN Last Admin: 01/12/17 04:33 Dose: 650 mg Heparin Sodium (Porcine) (Heparin -) 5,000 unit SQ BID [facility] Last Admin: 01/12/17 10:45 Dose: 5,000 unit Insulin Aspart (Novolog Vial Sliding Scale -) 1 vial SQ ACHS [facility] PRN Reason: Protocol Last Admin: 01/12/17 12:27 Dose: Not Given Insulin Detemir (Levemir Vial) 7 units SQ HS [facility] Last Admin: 01/11/17 21:06 Dose: 7 unit Insulin Detemir (Levemir Vial) 25 units SQ AM [facility] Last Admin: 01/12/17 06:10 Dose: 25 unit Metoclopramide HCl (Reglan Injection -) 10 mg IVPB Q8H [facility] Last Admin: 01/12/17 12:32 Dose: 10 mg Ondansetron HCl (Zofran Injection) 4 mg IVPB Q4H PRN Pancrelipase (Creon Dr 36,000 Units Capsule) 1 cap PO TIDCM [facility] Last Admin: 01/12/17 12:24 Dose: 1 cap Pantoprazole Sodium (Protonix -) 40 mg PO DAILY [facility] Last Admin: 01/12/17 10:45 Dose: 40 mg Polyethylene Glycol (Miralax (For Daily Use) -) 17 gm PO DAILY [facility] Last Admin: 01/12/17 10:45 Dose: 17 gm Ursodiol (Actigal -) 300 mg PO BID [facility] Last Admin: 01/12/17 10:45 Dose: 300 mg - Objective Vital Signs: Vital Signs Temperature 101.6 F H 01/12/17 05:58 Pulse Rate 115 H 01/12/17 05:58 Respiratory Rate 18 01/12/17 05:58 Blood Pressure 120/52 01/12/17 05:58 O2 Sat by Pulse Oximetry (%) 98 01/11/17 21:00 Constitutional: Yes: No Distress, Calm Cardiovascular: Yes: Regular Rate and Rhythm Respiratory: Yes: Regular, CTA Bilaterally Gastrointestinal: Yes: Normal Bowel Sounds, Soft Musculoskeletal: Yes: WNL Extremities: Yes: WNL Neurological: Yes: Alert, Oriented Psychiatric: Yes: Alert, Oriented Labs: CBC, BMP 01/12/17 07:00 01/12/17 07:00 Assessment/Plan uncontrolled dm dehydration leukocytosis dyspepsia DKA (diabetic ketoacidoses) Code(s): E13.10 - OTH DIABETES MELLITUS WITH KETOACIDOSIS WITHOUT COMA Dyspepsia Code(s): R10.13 - EPIGASTRIC PAIN Diabetes mellitus, insulin dependent (IDDM), uncontrolled Code(s): E10.65 - TYPE 1 DIABETES MELLITUS WITH HYPERGLYCEMIA fever of unknown origin patient spiking fevers again plan i am going to do ct scan of the chest and abdomen also if patient spikes fever again to do repeat blood cx we botello see if we see anything specially in the chest she has no sinus tenderness changed her back to iv abx if still continues to spike will add another abx chlamydia and GC ordered also esr and crp send
[2017-01-12] MEDS: PIPERACILLIN/TAZOB 3.375 GM 50 ML IVPB SCH ×2 (15:03→18:10)
[2017-01-13] MEDS: PIPERACILLIN/TAZOB 3.375 GM 50 ML IVPB SCH ×3 (01:31→17:13)
[2017-01-13] MEDS: METOCLOPRAMIDE HCL INJECTION 10 MG/2 ML VIAL IVPB SCH ×3 (04:20→20:40)
[2017-01-13] MEDS: ACETAMINOPHEN 325 MG TABLET (FP) PO PRN ×2 (06:04→17:13)
[2017-01-13] MEDS: INSULIN DETEMIR 100 UNITS/ML MDV SQ SCH ×2 (06:05→21:06)
[2017-01-13] MEDS: INSULIN SLIDING SCALE (NOVOLOG) 1 VIAL SQ SCH ×4 (06:28→21:05)
[2017-01-13] MEDS ORDERED: INSULIN (NOVOLOG) ASPART 100 UNITS/ML 10ML VIAL ONE (06:56)
[2017-01-13 08:21] LABS: BASOPHIL 0.2 % (0-2.0); EOSINOPHIL 0.2 % (0-4.5); MCH 27.7 pg (25.7-33.7); MCHC 33.3 g/dl (32.0-36.0); MEAN CELL VOLUME 83.4 fl (80-96); MEAN PLT VOLUME 7.3 fl (7.5-11.1); NEUTROPHILS 87.4 % (42.8-82.8); PLATELET COUNT 434 K/MM3 (134-434); RDW 14.8 % (11.6-15.6); WHITE BLOOD COUNT 16.2 K/mm3 (4.0-10.0)
[2017-01-13] MEDS ORDERED: PT OWN MED DRAWER 7, Y5N ONE ×3 (08:32→11:30)
[2017-01-13 08:33] LABS: ALBUMIN 2.1 g/dl (3.4-5.0); ANION GAP 10 (8-16); C-REACTIVE PROTEIN 9.6 MG/DL (0.00-0.3); CO2 28 mmol/L (21-32); CREATININE 1.1 mg/dL (0.55-1.02); GLUCOSE,RANDOM 132 mg/dL (74-106); SGOT/AST 29 U/L (15-37); SGPT/ALT 39 U/L (12-78)
[2017-01-13] MEDS: LIPASE/PROTEASE/AMYLASE 36,000 UNIT CAPSULE PO SCH ×3 (08:33→17:13)
[2017-01-13 08:35] LABS: ALK PHOS 138 U/L (45-117); BILIRUBIN,TOTAL 0.5 mg/dL (0.2-1.0); TOT PROT 6.3 g/dl (6.4-8.2)
[2017-01-13] MEDS ORDERED: HEPARIN NA (PORCINE) 5,000 UNITS/ML 1ML VIAL ONE (10:07)
[2017-01-13] MEDS: PANTOPRAZOLE 40 MG TABLET (FP) PO SCH (10:10)
[2017-01-13] MEDS: URSODIOL 300 MG CAPSULE PO SCH ×2 (10:10→21:02)
[2017-01-13] MEDS: HEPARIN NA (PORCINE) 5,000 UNITS/ML 1ML VIAL SQ SCH (10:10)
[2017-01-13] MEDS: POLYETHYLENE GLYCOL 3350 119 GM BTL PO SCH (10:11)
--- NOTE | 2017-01-13 13:23 | PN ---
Progress Note, Physician History of Present Illness: patient continues to spike inspite of abx in no distress await for report - Current Medication List Current Medications: Active Medications Acetaminophen (Tylenol -) 650 mg PO Q6H PRN PRN Reason: FEVER OR PAIN Last Admin: 01/13/17 06:04 Dose: 650 mg Piperacillin Sod/Tazobactam Sod (Zosyn 3.375gm Ivpb (Pre-Docked)) 50 mls @ 100 mls/hr IVPB Q8H-IV [facility] PRN Reason: Protocol Last Admin: 01/13/17 10:40 Dose: 100 mls/hr Insulin Aspart (Novolog Vial Sliding Scale -) 1 vial SQ ACHS [facility] PRN Reason: Protocol Last Admin: 01/13/17 11:52 Dose: 4 units Insulin Detemir (Levemir Vial) 7 units SQ HS [facility] Last Admin: 01/12/17 21:33 Dose: 7 unit Insulin Detemir (Levemir Vial) 25 units SQ AM [facility] Last Admin: 01/13/17 06:05 Dose: 25 unit Metoclopramide HCl (Reglan Injection -) 10 mg IVPB Q8H [facility] Last Admin: 01/13/17 12:11 Dose: Not Given Ondansetron HCl (Zofran Injection) 4 mg IVPB Q4H PRN Pancrelipase (Creon Dr 36,000 Units Capsule) 1 cap PO TIDCM [facility] Last Admin: 01/13/17 12:12 Dose: 1 cap Pantoprazole Sodium (Protonix -) 40 mg PO DAILY [facility] Last Admin: 01/13/17 10:10 Dose: 40 mg Polyethylene Glycol (Miralax (For Daily Use) -) 17 gm PO DAILY [facility] Last Admin: 01/13/17 10:11 Dose: 17 gm Ursodiol (Actigal -) 300 mg PO BID [facility] Last Admin: 01/13/17 10:10 Dose: 300 mg - Objective Vital Signs: Vital Signs Temperature 99.6 F 01/13/17 10:00 Pulse Rate 95 H 01/13/17 10:00 Respiratory Rate 20 01/13/17 10:00 Blood Pressure 117/63 01/13/17 10:00 O2 Sat by Pulse Oximetry (%) 98 01/12/17 21:00 Constitutional: Yes: No Distress, Calm Cardiovascular: Yes: Regular Rate and Rhythm Respiratory: Yes: Regular, CTA Bilaterally Gastrointestinal: Yes: Normal Bowel Sounds, Soft Musculoskeletal: Yes: WNL Extremities: Yes: WNL Neurological: Yes: Alert, Oriented Psychiatric: Yes: Alert Labs: CBC, BMP 01/13/17 06:50 01/13/17 06:50 Assessment/Plan uncontrolled dm dehydration leukocytosis dyspepsia DKA (diabetic ketoacidoses) Code(s): E13.10 - OTH DIABETES MELLITUS WITH KETOACIDOSIS WITHOUT COMA Dyspepsia Code(s): R10.13 - EPIGASTRIC PAIN Diabetes mellitus, insulin dependent (IDDM), uncontrolled Code(s): E10.65 - TYPE 1 DIABETES MELLITUS WITH HYPERGLYCEMIA fever of unknown origin patient spiking fevers again plan await for ct results will add vanco and see if the fever breaks
[2017-01-13] MEDS ORDERED: VANCOMYCIN 1,250 MG in DEXTROSE 5%-WATER - 250 ML IVPB SCH (13:30)
[2017-01-13] MEDS: VANCOMYCIN 1,250 MG in DEXTROSE 5%-WATER - 250 ML IVPB SCH (15:58)
[2017-01-14] MEDS: PIPERACILLIN/TAZOB 3.375 GM 50 ML IVPB SCH ×3 (01:13→17:14)
--- NOTE | 2017-01-14 01:19 | PN ---
Progress Note, Physician History of Present Illness: Pt seen and examined 01/13/17 however note is being entered late - Current Medication List Current Medications: Active Medications Acetaminophen (Tylenol -) 650 mg PO Q6H PRN PRN Reason: FEVER OR PAIN Last Admin: 01/13/17 17:13 Dose: 650 mg Piperacillin Sod/Tazobactam Sod (Zosyn 3.375gm Ivpb (Pre-Docked)) 50 mls @ 100 mls/hr IVPB Q8H-IV RICHIE PRN Reason: Protocol Last Admin: 01/14/17 01:13 Dose: 100 mls/hr Vancomycin HCl 1,250 mg/ (Dextrose) 250 mls @ 250 mls/hr IVPB DAILY@1600 RICHIE PRN Reason: Protocol Last Admin: 01/13/17 15:58 Dose: 250 mls/hr Insulin Aspart (Novolog Vial Sliding Scale -) 1 vial SQ ACHS RICHIE PRN Reason: Protocol Last Admin: 01/13/17 21:05 Dose: 8 units Insulin Detemir (Levemir Vial) 7 units SQ HS RICHIE Last Admin: 01/13/17 21:06 Dose: 7 unit Insulin Detemir (Levemir Vial) 25 units SQ AM RICHIE Last Admin: 01/13/17 06:05 Dose: 25 unit Metoclopramide HCl (Reglan Injection -) 10 mg IVPB Q8H RICHIE Last Admin: 01/13/17 20:40 Dose: Not Given Ondansetron HCl (Zofran Injection) 4 mg IVPB Q4H PRN Pancrelipase (Creon Dr 36,000 Units Capsule) 1 cap PO TIDCM [facility] Last Admin: 01/13/17 17:13 Dose: 1 cap Pantoprazole Sodium (Protonix -) 40 mg PO DAILY RICHIE Last Admin: 01/13/17 10:10 Dose: 40 mg Polyethylene Glycol (Miralax (For Daily Use) -) 17 gm PO DAILY RICHIE Last Admin: 01/13/17 10:11 Dose: 17 gm Ursodiol (Actigal -) 300 mg PO BID RICHIE Last Admin: 01/13/17 21:02 Dose: 300 mg - Objective Vital Signs: Vital Signs Temperature 99.0 F 01/13/17 22:00 Pulse Rate 101 H 01/13/17 22:00 Respiratory Rate 18 01/13/17 22:00 Blood Pressure 107/60 01/13/17 22:00 O2 Sat by Pulse Oximetry (%) 97 01/13/17 21:00 Constitutional: Yes: No Distress Eyes: Yes: WNL HENT: Yes: WNL Neck: Yes: WNL, Supple Cardiovascular: Yes: WNL, Regular Rate and Rhythm Respiratory: Yes: WNL, Regular, CTA Bilaterally Gastrointestinal: Yes: WNL, Normal Bowel Sounds, Soft Labs: CBC, BMP 01/13/17 06:50 01/13/17 06:50 Problem List - Problems (1) Leukocytosis Code(s): D72.829 - ELEVATED WHITE BLOOD CELL COUNT, UNSPECIFIED (2) Abdominal pain Code(s): R10.9 - UNSPECIFIED ABDOMINAL PAIN (3) DKA (diabetic ketoacidoses) Code(s): E13.10 - OTH DIABETES MELLITUS WITH KETOACIDOSIS WITHOUT COMA (4) Acute renal failure Code(s): N17.9 - ACUTE KIDNEY FAILURE, UNSPECIFIED
[2017-01-14] MEDS: ACETAMINOPHEN 325 MG TABLET (FP) PO PRN (01:33)
[2017-01-14] MEDS: METOCLOPRAMIDE HCL INJECTION 10 MG/2 ML VIAL IVPB SCH ×2 (04:03→11:58)
[2017-01-14] MEDS: INSULIN SLIDING SCALE (NOVOLOG) 1 VIAL SQ SCH ×4 (06:06→21:41)
[2017-01-14] MEDS: INSULIN DETEMIR 100 UNITS/ML MDV SQ SCH ×2 (06:06→21:41)
[2017-01-14 06:49] LABS: BASOPHIL 0.3 % (0-2.0); EOSINOPHIL 0.5 % (0-4.5); MCH 28.6 pg (25.7-33.7); MCHC 34.4 g/dl (32.0-36.0); MEAN CELL VOLUME 83.1 fl (80-96); MEAN PLT VOLUME 6.9 fl (7.5-11.1); NEUTROPHILS 83.8 % (42.8-82.8); PLATELET COUNT 473 K/MM3 (134-434); RDW 14.8 % (11.6-15.6); WHITE BLOOD COUNT 12.7 K/mm3 (4.0-10.0)
[2017-01-14 07:34] LABS: ALBUMIN 2.3 g/dl (3.4-5.0); ANION GAP 8 (8-16); CALCIUM 8.4 mg/dL (8.5-10.1); CO2 28 mmol/L (21-32); GLUCOSE,RANDOM 120 mg/dL (74-106)
[2017-01-14 07:38] LABS: ALK PHOS 137 U/L (45-117); BILIRUBIN,TOTAL 0.4 mg/dL (0.2-1.0); CREATININE 1.1 mg/dL (0.55-1.02); SGOT/AST 23 U/L (15-37); SGPT/ALT 34 U/L (12-78); TOT PROT 7.1 g/dl (6.4-8.2)
[2017-01-14] MEDS ORDERED: PT OWN MED DRAWER 7, Y5N ONE (08:32)
[2017-01-14] MEDS: LIPASE/PROTEASE/AMYLASE 36,000 UNIT CAPSULE PO SCH ×3 (08:34→17:14)
[2017-01-14] MEDS ORDERED: HEPARIN NA (PORCINE) 5,000 UNITS/ML 1ML VIAL ONE (10:02)
[2017-01-14] MEDS: POLYETHYLENE GLYCOL 3350 119 GM BTL PO SCH (10:04)
[2017-01-14] MEDS: PANTOPRAZOLE 40 MG TABLET (FP) PO SCH (10:04)
[2017-01-14] MEDS: URSODIOL 300 MG CAPSULE PO SCH ×2 (10:04→21:41)
[2017-01-14] MEDS: VANCOMYCIN 1,250 MG in DEXTROSE 5%-WATER - 250 ML IVPB SCH (15:42)
[2017-01-14] MEDS ORDERED: METOCLOPRAMIDE HCL INJECTION 10 MG/2 ML VIAL IVPB PRN (19:46)
--- NOTE | 2017-01-14 21:45 | PN ---
Progress Note, Physician History of Present Illness: Pt still spiking temp Pt has dry nonproductive cough - Current Medication List Current Medications: Active Medications Acetaminophen (Tylenol -) 650 mg PO Q6H PRN PRN Reason: FEVER OR PAIN Last Admin: 01/14/17 01:33 Dose: 650 mg Piperacillin Sod/Tazobactam Sod (Zosyn 3.375gm Ivpb (Pre-Docked)) 50 mls @ 100 mls/hr IVPB Q8H-IV RICHIE PRN Reason: Protocol Last Admin: 01/14/17 17:14 Dose: 100 mls/hr Vancomycin HCl 1,250 mg/ (Dextrose) 250 mls @ 250 mls/hr IVPB DAILY@1600 RICHIE PRN Reason: Protocol Last Admin: 01/14/17 15:42 Dose: 250 mls/hr Insulin Aspart (Novolog Vial Sliding Scale -) 1 vial SQ ACHS RICHIE PRN Reason: Protocol Last Admin: 01/14/17 16:49 Dose: 6 units Insulin Detemir (Levemir Vial) 7 units SQ HS [facility] Last Admin: 01/13/17 21:06 Dose: 7 unit Insulin Detemir (Levemir Vial) 25 units SQ AM COUNT [facility] Last Admin: 01/14/17 06:06 Dose: 25 unit Metoclopramide HCl (Reglan Injection -) 10 mg IVPB Q8H PRN PRN Reason: nausea Ondansetron HCl (Zofran Injection) 4 mg IVPB Q4H PRN Pancrelipase (Creon Dr 36,000 Units Capsule) 1 cap PO TIDCM [facility] Last Admin: 01/14/17 17:14 Dose: 1 cap Pantoprazole Sodium (Protonix -) 40 mg PO DAILY [facility] Last Admin: 01/14/17 10:04 Dose: 40 mg Polyethylene Glycol (Miralax (For Daily Use) -) 17 gm PO DAILY [facility] Last Admin: 01/14/17 10:04 Dose: Not Given Ursodiol (Actigal -) 300 mg PO BID [facility] Last Admin: 01/14/17 10:04 Dose: 300 mg - Objective Vital Signs: Vital Signs Temperature 99.3 F 01/14/17 17:15 Pulse Rate 94 H 01/14/17 17:15 Respiratory Rate 18 01/14/17 17:15 Blood Pressure 123/66 01/14/17 17:15 O2 Sat by Pulse Oximetry (%) 95 01/14/17 20:26 Constitutional: Yes: No Distress Eyes: Yes: WNL HENT: Yes: WNL Neck: Yes: WNL, Supple Cardiovascular: Yes: WNL, Regular Rate and Rhythm Respiratory: Yes: WNL, Regular, CTA Bilaterally Gastrointestinal: Yes: WNL, Normal Bowel Sounds, Soft Labs: CBC, BMP 01/14/17 06:00 01/14/17 06:00 Problem List - Problems (1) Leukocytosis Assessment/Plan: WBC decreasing and temp curve decreasing CT scan abd/chest showed b/l consolidations Will get pulmonary consult Cultures remain negative Code(s): D72.829 - ELEVATED WHITE BLOOD CELL COUNT, UNSPECIFIED (2) Abdominal pain Assessment/Plan: Awaiting results of mri abd Code(s): R10.9 - UNSPECIFIED ABDOMINAL PAIN (3) DKA (diabetic ketoacidoses) Assessment/Plan: Resolved Cont novolog w/ sliding scale/farxiga Code(s): E13.10 - OTH DIABETES MELLITUS WITH KETOACIDOSIS WITHOUT COMA (4) Acute renal failure Code(s): N17.9 - ACUTE KIDNEY FAILURE, UNSPECIFIED
[2017-01-15] MEDS: PIPERACILLIN/TAZOB 3.375 GM 50 ML IVPB SCH ×2 (02:16→09:56)
[2017-01-15] MEDS ORDERED: INSULIN (NOVOLOG) ASPART 100 UNITS/ML 10ML VIAL ONE (04:32)
[2017-01-15] MEDS: INSULIN SLIDING SCALE (NOVOLOG) 1 VIAL SQ SCH ×4 (06:18→22:28)
[2017-01-15] MEDS: INSULIN DETEMIR 100 UNITS/ML MDV SQ SCH ×2 (06:19→22:28)
[2017-01-15] MEDS ORDERED: PT OWN MED DRAWER 7, Y5N ONE (07:54)
[2017-01-15 08:02] LABS: BASOPHIL 0.2 % (0-2.0); EOSINOPHIL 1.4 % (0-4.5); MCH 28.2 pg (25.7-33.7); MCHC 33.7 g/dl (32.0-36.0); MEAN CELL VOLUME 83.7 fl (80-96); MEAN PLT VOLUME 7.1 fl (7.5-11.1); PLATELET COUNT 492 K/MM3 (134-434); RDW 14.9 % (11.6-15.6); WHITE BLOOD COUNT 9.3 K/mm3 (4.0-10.0)
[2017-01-15 08:27] LABS: ALBUMIN 2.2 g/dl (3.4-5.0); ANION GAP 10 (8-16); CALCIUM 8.6 mg/dL (8.5-10.1); CO2 27 mmol/L (21-32); GLUCOSE,RANDOM 102 mg/dL (74-106)
[2017-01-15 08:31] LABS: ALK PHOS 122 U/L (45-117); BILIRUBIN,TOTAL 0.3 mg/dL (0.2-1.0); SGOT/AST 15 U/L (15-37); SGPT/ALT 28 U/L (12-78); TOT PROT 6.9 g/dl (6.4-8.2)
[2017-01-15] MEDS: LIPASE/PROTEASE/AMYLASE 36,000 UNIT CAPSULE PO SCH ×3 (08:34→17:08)
[2017-01-15] MEDS: URSODIOL 300 MG CAPSULE PO SCH ×2 (09:55→22:29)
[2017-01-15] MEDS: PANTOPRAZOLE 40 MG TABLET (FP) PO SCH (09:55)
[2017-01-15] MEDS: POLYETHYLENE GLYCOL 3350 119 GM BTL PO SCH (09:56)
--- NOTE | 2017-01-15 11:51 | PN ---
Progress Note, Physician History of Present Illness: patient still spiking fever low grade clinically very stable no new issues - Current Medication List Current Medications: Active Medications Acetaminophen (Tylenol -) 650 mg PO Q6H PRN PRN Reason: FEVER OR PAIN Last Admin: 01/14/17 01:33 Dose: 650 mg Piperacillin Sod/Tazobactam Sod (Zosyn 3.375gm Ivpb (Pre-Docked)) 50 mls @ 100 mls/hr IVPB Q8H-IV RICHIE PRN Reason: Protocol Last Admin: 01/15/17 09:56 Dose: 100 mls/hr Insulin Aspart (Novolog Vial Sliding Scale -) 1 vial SQ ACHS RICHIE PRN Reason: Protocol Last Admin: 01/15/17 06:18 Dose: Not Given Insulin Detemir (Levemir Vial) 7 units SQ HS [facility] Last Admin: 01/14/17 21:41 Dose: 7 unit Insulin Detemir (Levemir Vial) 25 units SQ AM [facility] Last Admin: 01/15/17 06:19 Dose: 25 unit Metoclopramide HCl (Reglan Injection -) 10 mg IVPB Q8H PRN PRN Reason: nausea Ondansetron HCl (Zofran Injection) 4 mg IVPB Q4H PRN Pancrelipase (Creon Dr 36,000 Units Capsule) 1 cap PO TIDCM [facility] Last Admin: 01/15/17 08:34 Dose: 1 cap Pantoprazole Sodium (Protonix -) 40 mg PO DAILY [facility] Last Admin: 01/15/17 09:55 Dose: 40 mg Polyethylene Glycol (Miralax (For Daily Use) -) 17 gm PO DAILY [facility] Last Admin: 01/15/17 09:56 Dose: Not Given Ursodiol (Actigal -) 300 mg PO BID [facility] Last Admin: 01/15/17 09:55 Dose: 300 mg - Objective Vital Signs: Vital Signs Temperature 100.1 F H 01/15/17 06:04 Pulse Rate 98 H 01/15/17 06:04 Respiratory Rate 18 01/15/17 06:04 Blood Pressure 121/69 01/15/17 06:04 O2 Sat by Pulse Oximetry (%) 95 01/14/17 20:26 Constitutional: Yes: No Distress, Calm Eyes: Yes: Conjunctiva Clear Cardiovascular: Yes: Regular Rate and Rhythm Respiratory: Yes: Regular, CTA Bilaterally Gastrointestinal: Yes: Normal Bowel Sounds, Soft Musculoskeletal: Yes: WNL Extremities: Yes: WNL Neurological: Yes: Alert, Oriented Psychiatric: Yes: Alert, Oriented Labs: CBC, BMP 01/15/17 06:30 01/15/17 06:30 - ....Imaging MRI: Report Reviewed, Image Reviewed Assessment/Plan uncontrolled dm dehydration leukocytosis dyspepsia DKA (diabetic ketoacidoses) Code(s): E13.10 - OTH DIABETES MELLITUS WITH KETOACIDOSIS WITHOUT COMA Dyspepsia Code(s): R10.13 - EPIGASTRIC PAIN Diabetes mellitus, insulin dependent (IDDM), uncontrolled Code(s): E10.65 - TYPE 1 DIABETES MELLITUS WITH HYPERGLYCEMIA fever of unknown origin still with fever plan will stop all abx and watch if still febrile then i think we should consider rheumatology
--- NOTE | 2017-01-15 14:56 | CONSULT ---
Consult Consult Specialty:: Nephrology Reason for Consultation:: lesion on MRI - History of Present Illness Chief Complaint: initially preseneted with headache and fever History of Present Illness: Pt is a 41 year old female with pmhx of DM and hyperlipidemia who presents to the ED originally for weakness and lightheadedness. She also had nausea and abdominal pain at the time. On admission pt was in acute renal failure which has improved. She was taking 2 tabs of naproxen every 6 hours for about 4 days for a toothache. Pt has had fevers. She also had leukocytosis. Her blood cultures have been negative. I was called to evaluate her as she had an MRI which shows a lesion in the right kidney that can be secondary to acute infarcts or pyelo. Pt says she feels better today. She denies hematuria. She has had two children and no history of miscarriage. She denies shortness of breath. - History Source History Provided By: Patient, Medical Record - Past Medical History Cardio/Vascular: Yes: Hyperlipdemia ...LMP Comment: 10 years ago Endocrine: Yes: Diabetes Mellitus - Past Surgical History Past Surgical History: Yes: None - Alcohol/Substance Use Hx Alcohol Use: No - Smoking History Smoking history: Never smoked Have you smoked in the past 12 months: No Home Medications - Allergies Allergies/Adverse Reactions: Allergies Allergy/AdvReac Type Severity Reaction Status Date / Time No Known Allergies Allergy Verified 01/03/17 18:31 - Home Medications Home Medications: Ambulatory Orders Dapagliflozin Propanediol [Farxiga] 5 mg PO DAILY 01/04/17 Insulin (Levemir) [Levemir Flexpen -] 0 units SQ DAILY 01/04/17 Metformin HCl [Metformin HCl ER] 1,000 mg PO BID 01/04/17 Family Disease History - Family Disease History Family History: Denies Review of Systems - Review of Systems Constitutional: denies: Chills, Fever Eyes: reports: No Symptoms HENT: reports: Toothache Neck: reports: No Symptoms Cardiovascular: reports: No Symptoms Respiratory: reports: No Symptoms Genitourinary: reports: No Symptoms Musculoskeletal: reports: No Symptoms Integumentary: reports: No Symptoms Neurological: reports: No Symptoms Endocrine: reports: No Symptoms Hematology/Lymphatic: reports: No Symptoms Psychiatric: reports: No Symptoms Physical Exam Vital Signs: Vital Signs Temperature 98.7 F 01/15/17 14:29 Pulse Rate 96 H 01/15/17 14:29 Respiratory Rate 18 01/15/17 14:29 Blood Pressure 104/64 01/15/17 14:29 O2 Sat by Pulse Oximetry (%) 95 01/15/17 09:00 Constitutional: Yes: Calm Eyes: Yes: Conjunctiva Clear Neck: Yes: Supple Cardiovascular: Yes: S1, S2 Respiratory: Yes: CTA Bilaterally Gastrointestinal: Yes: Normal Bowel Sounds, Soft Renal/: Yes: WNL. No: CVA Tenderness - Left, CVA Tenderness - Right Musculoskeletal: Yes: WNL Edema: No Integumentary: Yes: WNL Neurological: Yes: WNL, Alert, Oriented Psychiatric: Yes: Oriented Labs: CBC, BMP 01/15/17 06:30 01/15/17 06:30 Laboratory Tests 01/03/17 01/03/17 01/05/17 21:45 23:48 06:15 WBC Sodium Potassium Chloride Carbon Dioxide Anion Gap BUN Creatinine 1.5 H 1.5 H Creat Clearance w eGFR Urine Color Ltyellow Urine Appearance Slcloudy Urine pH 5.0 Ur Specific [place] 1.025 Urine Protein 1+ H Urine Glucose (UA) 3+ H Urine Ketones 2+ H Urine Blood 2+ H Urine Nitrite Negative Urine Bilirubin Negative Urine Urobilinogen Negative Ur Leukocyte Esterase Negative Urine RBC 14 Urine WBC 23 Ur Epithelial Cells Rare Urine Bacteria Rare Urine Mucus Rare Urine HCG, Qual Negative 01/06/17 01/08/17 01/11/17 06:35 06:00 15:30 WBC 11.1 H Sodium Potassium Chloride Carbon Dioxide Anion Gap BUN Creatinine 1.0 D 0.9 Creat Clearance w eGFR Urine Color Urine Appearance Urine pH Ur Specific [place] Urine Protein Urine Glucose (UA) Urine Ketones Urine Blood Urine Nitrite Urine Bilirubin Urine Urobilinogen Ur Leukocyte Esterase Urine RBC Urine WBC Ur Epithelial Cells Urine Bacteria Urine Mucus Urine HCG, Qual 01/11/17 01/13/17 01/14/17 15:45 06:50 06:00 WBC 16.2 H 12.7 H Sodium Potassium Chloride Carbon Dioxide Anion Gap BUN Creatinine 1.0 Creat Clearance w eGFR Urine Color Urine Appearance Urine pH Ur Specific [place] Urine Protein Urine Glucose (UA) Urine Ketones Urine Blood Urine Nitrite Urine Bilirubin Urine Urobilinogen Ur Leukocyte Esterase Urine RBC Urine WBC Ur Epithelial Cells Urine Bacteria Urine Mucus Urine HCG, Qual 01/14/17 01/15/17 06:00 06:30 WBC Sodium 140 Potassium 4.7 Chloride 103 Carbon Dioxide 27 Anion Gap 10 BUN 12 Creatinine 1.1 H 1.0 Creat Clearance w eGFR > 60 Urine Color Urine Appearance Urine pH Ur Specific [place] Urine Protein Urine Glucose (UA) Urine Ketones Urine Blood Urine Nitrite Urine Bilirubin Urine Urobilinogen Ur Leukocyte Esterase Urine RBC Urine WBC Ur Epithelial Cells Urine Bacteria Urine Mucus Urine HCG, Qual Imaging - Results MRI: Report Reviewed (lesions in right kidney - pyelo vs acute infarcts) Problem List - Problems (1) Abdominal pain Code(s): R10.9 - UNSPECIFIED ABDOMINAL PAIN (2) Acute renal failure Code(s): N17.9 - ACUTE KIDNEY FAILURE, UNSPECIFIED (3) Diabetes mellitus, insulin dependent (IDDM), uncontrolled Code(s): E10.65 - TYPE 1 DIABETES MELLITUS WITH HYPERGLYCEMIA (4) Dyspepsia Code(s): R10.13 - EPIGASTRIC PAIN (5) Leukocytosis Code(s): D72.829 - ELEVATED WHITE BLOOD CELL COUNT, UNSPECIFIED (6) UTI (urinary tract infection) Code(s): N39.0 - URINARY TRACT INFECTION, SITE NOT SPECIFIED Assessment/Plan Current Medications Generic Name Dose Route Start Last Admin Trade Name Freq PRN Reason Stop Dose Admin Acetaminophen 650 mg 01/06/17 07:21 01/14/17 01:33 Tylenol - PO 650 mg Q6H PRN Administration FEVER OR PAIN Insulin Aspart 1 vial 01/04/17 16:30 01/15/17 17:08 Novolog Vial Sliding Scale - SQ 2 units ACHS RICHIE Administration Protocol Insulin Detemir 7 units 01/10/17 00:32 01/14/17 21:41 Levemir Vial SQ 7 unit HS RICHIE Administration Insulin Detemir 25 units 01/10/17 00:33 01/15/17 06:19 Levemir Vial SQ 25 unit AM RICHIE Administration Metoclopramide HCl 10 mg 01/14/17 19:46 Reglan Injection - IVPB Q8H PRN nausea Ondansetron HCl 4 mg 01/05/17 10:00 Zofran Injection IVPB Q4H PRN Pancrelipase 1 cap 01/06/17 17:30 01/15/17 17:[address] 36,000 Units Capsule PO 1 cap TIDCM RICHIE Administration Pantoprazole Sodium 40 mg 01/06/17 10:00 01/15/17 09:55 Protonix - PO 40 mg DAILY RICHIE Administration Polyethylene Glycol 17 gm 01/07/17 17:00 01/15/17 09:56 Miralax (For Daily Use) - PO Not Given DAILY RICHIE Ursodiol 300 mg 01/08/17 22:00 01/15/17 09:55 Actigal - PO 300 mg BID RICHIE Administration Impression 1. ALEJANDRA resolved 2. right renal lesion - pyelo vs infarcts 3. DM 4. hyperlipidemia 5. pleural effusion 6. abdominal pain 7. leukocytosis Plan - called vascular surgery to evaluate patient for the MRI findings, discussed on phone - pt a call out to ID to discuss leukocytosis - get UA to evaluate for hematuria - get renal ultrasound - check echo - pt will need a dental exam and she initially had a tooth ache - pulmonary eval for pleural effusion - repeat labs in am - will follow pt Dr Haney
--- NOTE | 2017-01-15 20:16 | PN ---
Progress Note, Physician History of Present Illness: No new complaints Pt feels better - Current Medication List Current Medications: Active Medications Acetaminophen (Tylenol -) 650 mg PO Q6H PRN PRN Reason: FEVER OR PAIN Last Admin: 01/14/17 01:33 Dose: 650 mg Insulin Aspart (Novolog Vial Sliding Scale -) 1 vial SQ ACHS RICHIE PRN Reason: Protocol Last Admin: 01/15/17 17:08 Dose: 2 units Insulin Detemir (Levemir Vial) 7 units SQ HS [facility] Last Admin: 01/14/17 21:41 Dose: 7 unit Insulin Detemir (Levemir Vial) 25 units SQ AM [facility] Last Admin: 01/15/17 06:19 Dose: 25 unit Metoclopramide HCl (Reglan Injection -) 10 mg IVPB Q8H PRN PRN Reason: nausea Ondansetron HCl (Zofran Injection) 4 mg IVPB Q4H PRN Pancrelipase (Creon Dr 36,000 Units Capsule) 1 cap PO TIDCM [facility] Last Admin: 01/15/17 17:08 Dose: 1 cap Pantoprazole Sodium (Protonix -) 40 mg PO DAILY [facility] Last Admin: 01/15/17 09:55 Dose: 40 mg Polyethylene Glycol (Miralax (For Daily Use) -) 17 gm PO DAILY [facility] Last Admin: 01/15/17 09:56 Dose: Not Given Ursodiol (Actigal -) 300 mg PO BID [facility] Last Admin: 01/15/17 09:55 Dose: 300 mg - Objective Vital Signs: Vital Signs Temperature 98.8 F 01/15/17 16:20 Pulse Rate 94 H 01/15/17 16:20 Respiratory Rate 20 01/15/17 16:20 Blood Pressure 118/70 01/15/17 16:20 O2 Sat by Pulse Oximetry (%) 95 01/15/17 09:00 Constitutional: Yes: No Distress Eyes: Yes: WNL HENT: Yes: WNL Neck: Yes: WNL, Supple Cardiovascular: Yes: WNL, Regular Rate and Rhythm Respiratory: Yes: WNL, Regular, CTA Bilaterally Gastrointestinal: Yes: WNL, Normal Bowel Sounds, Soft Labs: CBC, BMP 01/15/17 06:30 01/15/17 06:30 Problem List - Problems (1) Leukocytosis Assessment/Plan: Pt still w/ low grade temp WBC is normal today CT scan abd/chest showed b/l consolidations ?pneumonia MRI abd showed ?renal infarcts Renal/vascular consults Code(s): D72.829 - ELEVATED WHITE BLOOD CELL COUNT, UNSPECIFIED (2) DKA (diabetic ketoacidoses) Assessment/Plan: Resolved Cont novolog w/ sliding scale/farxiga Code(s): E13.10 - OTH DIABETES MELLITUS WITH KETOACIDOSIS WITHOUT COMA (3) Acute renal failure Assessment/Plan: Probably due to dehydration from DKA Resolved after IV hydration Code(s): N17.9 - ACUTE KIDNEY FAILURE, UNSPECIFIED
[2017-01-15 22:31] LABS: URINE APPEARANCE CLEAR; URINE BILIRUBIN NEGATIVE (NEGATIVE); URINE COLOR STRAW; URINE GLUCOSE (UA) 3+ (NEGATIVE); URINE KETONE NEGATIVE (NEGATIVE); URINE LEUK ESTERASE NEGATIVE (NEGATIVE); URINE NITRITE NEGATIVE (NEGATIVE); URINE PROTEIN NEGATIVE (NEGATIVE); URINE UROBILINOGEN 2.0 E.U/dl E.U./dl (0.2-1.0)
[2017-01-15 22:34] LABS: URINE BLOOD 1+ (NEGATIVE)
[2017-01-15 22:35] LABS: URINE MUCUS RARE; URINE RBC 2 /hpf (0-3); URINE WBC 6 /hpf (3-5)
[2017-01-16] MEDS: INSULIN SLIDING SCALE (NOVOLOG) 1 VIAL SQ SCH ×3 (06:10→17:45)
[2017-01-16] MEDS: INSULIN DETEMIR 100 UNITS/ML MDV SQ SCH (06:11)
[2017-01-16] MEDS: LIPASE/PROTEASE/AMYLASE 36,000 UNIT CAPSULE PO SCH ×3 (08:48→17:45)
--- NOTE | 2017-01-16 09:42 | CON.PULM ---
Consult Consult Specialty:: PULM/CCM Referred by:: ARMANDO Reason for Consultation:: Abnormal CT - History of Present Illness Chief Complaint: Abdominal pain History of Present Illness: 41 F, HPL and DM. Admitted on 01/04/2017 for acute abdominal pain. Suspicion was for gallstone cholecystitis with passing of the stone. Patient reports some dry non-productive cough. No significant sputum production or hemoptysis. No previous travel history or sick contacts. CT chest : bilateral mild pleural effusions with associated compressive atelectasis and possible air bronchograms. At present, she has minimal respiratory symptoms, just minimal cough. No SOB or VELEZ. IS : minimum of 1 L. - History Source History Provided By: Patient Limitations to Obtaining History: No Limitations - Past Medical History Cardio/Vascular: Yes: Hyperlipdemia ...LMP Comment: 10 years ago Endocrine: Yes: Diabetes Mellitus - Past Surgical History Past Surgical History: Yes: None - Alcohol/Substance Use Hx Alcohol Use: No - Smoking History Smoking history: Never smoked Have you smoked in the past 12 months: No Home Medications - Allergies Allergies/Adverse Reactions: Allergies Allergy/AdvReac Type Severity Reaction Status Date / Time No Known Allergies Allergy Verified 01/03/17 18:31 - Home Medications Home Medications: Ambulatory Orders Dapagliflozin Propanediol [Farxiga] 5 mg PO DAILY 01/04/17 Insulin (Levemir) [Levemir Flexpen -] 0 units SQ DAILY 01/04/17 Metformin HCl [Metformin HCl ER] 1,000 mg PO BID 01/04/17 Review of Systems - Review of Systems Constitutional: reports: Malaise. denies: Chills, Fever, Night Sweats Eyes: reports: No Symptoms HENT: reports: No Symptoms Neck: reports: No Symptoms Cardiovascular: denies: Chest Pain, Palpitations, Shortness of Breath Respiratory: reports: Cough. denies: Hemoptysis, Orthopnea, Snoring, SOB, SOB on Exertion, Wheezing Gastrointestinal: reports: Abdominal Pain, Indigestion. denies: Melena, Rectal Bleeding, Vomiting, Vomiting Blood Genitourinary: reports: No Symptoms Breasts: reports: No Symptoms Reported Musculoskeletal: reports: No Symptoms Integumentary: reports: No Symptoms Neurological: reports: No Symptoms Endocrine: reports: No Symptoms Hematology/Lymphatic: reports: No Symptoms Psychiatric: reports: No Symptoms Physical Exam Vital Sings: Vital Signs Temperature 99.2 F 01/16/17 07:38 Pulse Rate 93 H 01/16/17 07:38 Respiratory Rate 20 01/16/17 07:38 Blood Pressure 116/68 01/16/17 07:38 O2 Sat by Pulse Oximetry (%) 95 01/15/17 22:56 Constitutional: Yes: No Distress, Calm Eyes: Yes: Conjunctiva Clear, EOM Intact HENT: Yes: Atraumatic, Normocephalic Neck: Yes: Supple, Trachea Midline Cardiovascular: Yes: Regular Rate and Rhythm Respiratory: Yes: Cough, Diminished. No: Accessory Muscle Use, Dullness, On Nasal O2, Orthopnea, Rales, Rhonchi, SOB, SOB on Exertion, Stridor, Tachypnea, Wheezes ...Inspection: Yes: WNL ...Clubbing: No Gastrointestinal: Yes: Normal Bowel Sounds, Soft Renal/: Yes: WNL Musculoskeletal: Yes: WNL Extremities: Yes: WNL Edema: No Peripheral Pulses WNL: Yes Integumentary: Yes: WNL Neurological: Yes: WNL, Alert, Oriented ...Motor Strength: WNL Psychiatric: Yes: WNL, Alert, Oriented Labs: CBC, BMP 01/15/17 06:30 01/15/17 06:30 Imaging - Results Chest X-ray: Report Reviewed, Image Reviewed Cat Scan: Report Reviewed, Image Reviewed Problem List - Problems (1) Abdominal pain Code(s): R10.9 - UNSPECIFIED ABDOMINAL PAIN (2) Acute renal failure Code(s): N17.9 - ACUTE KIDNEY FAILURE, UNSPECIFIED (3) Diabetes mellitus, insulin dependent (IDDM), uncontrolled Code(s): E10.65 - TYPE 1 DIABETES MELLITUS WITH HYPERGLYCEMIA (4) Dyspepsia Code(s): R10.13 - EPIGASTRIC PAIN (5) Leukocytosis Code(s): D72.829 - ELEVATED WHITE BLOOD CELL COUNT, UNSPECIFIED (6) UTI (urinary tract infection) Code(s): N39.0 - URINARY TRACT INFECTION, SITE NOT SPECIFIED (7) Pleural effusion Code(s): J90 - PLEURAL EFFUSION, NOT ELSEWHERE CLASSIFIED (8) Atelectasis of both lungs Code(s): J98.11 - ATELECTASIS Assessment/Plan Pleural effusions likely due to previous splinting and atelectasis and volume resuscitation. Do not clinically suspect PNA. Patient currently without SOB or VELEZ. Would continue to monitor off ABX for now. Continue Incentive Spirometry. O2 only as needed. Ambulate as tolerated I advised the patient to have a repeat CXR in about 4 to 6 weeks to document resolution of findings. Will follow Thank you. Dr Boone
[2017-01-16] MEDS: URSODIOL 300 MG CAPSULE PO SCH (09:57)
[2017-01-16] MEDS: POLYETHYLENE GLYCOL 3350 119 GM BTL PO SCH (09:57)
[2017-01-16] MEDS: PANTOPRAZOLE 40 MG TABLET (FP) PO SCH (09:57)
--- NOTE | 2017-01-16 13:35 | PN ---
Progress Note, Physician History of Present Illness: patient stable off of abx has been afebrile for some time - Current Medication List Current Medications: Active Medications Acetaminophen (Tylenol -) 650 mg PO Q6H PRN PRN Reason: FEVER OR PAIN Last Admin: 01/14/17 01:33 Dose: 650 mg Insulin Aspart (Novolog Vial Sliding Scale -) 1 vial SQ ACHS [facility] PRN Reason: Protocol Last Admin: 01/16/17 11:45 Dose: Not Given Insulin Detemir (Levemir Vial) 7 units SQ HS [facility] Last Admin: 01/15/17 22:28 Dose: 7 unit Insulin Detemir (Levemir Vial) 25 units SQ AM [facility] Last Admin: 01/16/17 06:11 Dose: 25 unit Metoclopramide HCl (Reglan Injection -) 10 mg IVPB Q8H PRN PRN Reason: nausea Ondansetron HCl (Zofran Injection) 4 mg IVPB Q4H PRN Pancrelipase (Creon Dr 36,000 Units Capsule) 1 cap PO TIDCM [facility] Last Admin: 01/16/17 11:54 Dose: 1 cap Pantoprazole Sodium (Protonix -) 40 mg PO DAILY [facility] Last Admin: 01/16/17 09:57 Dose: 40 mg Polyethylene Glycol (Miralax (For Daily Use) -) 17 gm PO DAILY [facility] Last Admin: 01/16/17 09:57 Dose: Not Given Ursodiol (Actigal -) 300 mg PO BID [facility] Last Admin: 01/16/17 09:57 Dose: 300 mg - Objective Vital Signs: Vital Signs Temperature 98.8 F 01/16/17 09:00 Pulse Rate 94 H 01/16/17 09:00 Respiratory Rate 20 01/16/17 09:00 Blood Pressure 120/77 01/16/17 09:00 O2 Sat by Pulse Oximetry (%) 95 01/16/17 09:00 Constitutional: Yes: No Distress, Calm Cardiovascular: Yes: Regular Rate and Rhythm Respiratory: Yes: Regular, CTA Bilaterally Gastrointestinal: Yes: Normal Bowel Sounds, Soft Musculoskeletal: Yes: WNL Extremities: Yes: WNL Neurological: Yes: Alert, Oriented Labs: CBC, BMP 01/15/17 06:30 01/15/17 06:30 - ....Imaging Chest X-ray: Report Reviewed, Image Reviewed Cat Scan: Report Reviewed, Image Reviewed Assessment/Plan uncontrolled dm dehydration leukocytosis dyspepsia DKA (diabetic ketoacidoses) Code(s): E13.10 - OTH DIABETES MELLITUS WITH KETOACIDOSIS WITHOUT COMA Dyspepsia Code(s): R10.13 - EPIGASTRIC PAIN Diabetes mellitus, insulin dependent (IDDM), uncontrolled Code(s): E10.65 - TYPE 1 DIABETES MELLITUS WITH HYPERGLYCEMIA fever of unknown origin still with fever plan off of abx stable has been afebrile watch and await for urine
--- NOTE | 2017-01-16 15:59 | PN ---
Progress Note, Physician History of Present Illness: Pt seen and examined at bedside. She is awake and alert. She says she feels well. She denies shortness of breath. She denies dysuria. She denies flank pain. - Current Medication List Current Medications: Active Medications Acetaminophen (Tylenol -) 650 mg PO Q6H PRN PRN Reason: FEVER OR PAIN Last Admin: 01/14/17 01:33 Dose: 650 mg Insulin Aspart (Novolog Vial Sliding Scale -) 1 vial SQ ACHS [facility] PRN Reason: Protocol Last Admin: 01/16/17 11:45 Dose: Not Given Insulin Detemir (Levemir Vial) 7 units SQ HS [facility] Last Admin: 01/15/17 22:28 Dose: 7 unit Insulin Detemir (Levemir Vial) 25 units SQ AM [facility] Last Admin: 01/16/17 06:11 Dose: 25 unit Metoclopramide HCl (Reglan Injection -) 10 mg IVPB Q8H PRN PRN Reason: nausea Ondansetron HCl (Zofran Injection) 4 mg IVPB Q4H PRN Pancrelipase (Creon Dr 36,000 Units Capsule) 1 cap PO TIDCM [facility] Last Admin: 01/16/17 11:54 Dose: 1 cap Pantoprazole Sodium (Protonix -) 40 mg PO DAILY [facility] Last Admin: 01/16/17 09:57 Dose: 40 mg Polyethylene Glycol (Miralax (For Daily Use) -) 17 gm PO DAILY [facility] Last Admin: 01/16/17 09:57 Dose: Not Given Ursodiol (Actigal -) 300 mg PO BID [facility] Last Admin: 01/16/17 09:57 Dose: 300 mg - Objective Vital Signs: Vital Signs Temperature 99.1 F 01/16/17 15:24 Pulse Rate 86 01/16/17 15:24 Respiratory Rate 18 01/16/17 15:24 Blood Pressure 115/63 01/16/17 15:24 O2 Sat by Pulse Oximetry (%) 95 01/16/17 09:00 Constitutional: Yes: Calm Eyes: Yes: Conjunctiva Clear HENT: Yes: Atraumatic Neck: Yes: Supple Cardiovascular: Yes: S1, S2 Respiratory: Yes: CTA Bilaterally Gastrointestinal: Yes: Normal Bowel Sounds, Soft Genitourinary: Yes: WNL Musculoskeletal: Yes: WNL Edema: No Neurological: Yes: Oriented Psychiatric: Yes: Oriented Labs: CBC, BMP 01/15/17 06:30 01/15/17 06:30 Problem List - Problems (1) Abdominal pain Code(s): R10.9 - UNSPECIFIED ABDOMINAL PAIN (2) Acute renal failure Code(s): N17.9 - ACUTE KIDNEY FAILURE, UNSPECIFIED (3) Diabetes mellitus, insulin dependent (IDDM), uncontrolled Code(s): E10.65 - TYPE 1 DIABETES MELLITUS WITH HYPERGLYCEMIA (4) Dyspepsia Code(s): R10.13 - EPIGASTRIC PAIN (5) Leukocytosis Code(s): D72.829 - ELEVATED WHITE BLOOD CELL COUNT, UNSPECIFIED (6) UTI (urinary tract infection) Code(s): N39.0 - URINARY TRACT INFECTION, SITE NOT SPECIFIED Assessment/Plan Current Medications Generic Name Dose Route Start Last Admin Trade Name Freq PRN Reason Stop Dose Admin Acetaminophen 650 mg 01/06/17 07:21 01/14/17 01:33 Tylenol - PO 650 mg Q6H PRN Administration FEVER OR PAIN Insulin Aspart 1 vial 01/04/17 16:30 01/16/17 11:45 Novolog Vial Sliding Scale - SQ Not Given ACHS RICHIE Protocol Insulin Detemir 7 units 01/10/17 00:32 01/15/17 22:28 Levemir Vial SQ 7 unit HS [facility] Administration Insulin Detemir 25 units 01/10/17 00:33 01/16/17 06:11 Levemir Vial SQ 25 unit AM [facility] Administration Metoclopramide HCl 10 mg 01/14/17 19:46 Reglan Injection - IVPB Q8H PRN nausea Ondansetron HCl 4 mg 01/05/17 10:00 Zofran Injection IVPB Q4H PRN Pancrelipase 1 cap 01/06/17 17:30 01/16/17 11:54 Credickson Quinn 36,000 Units Capsule PO 1 cap TIDCM [facility]ICHIE Administration Pantoprazole Sodium 40 mg 01/06/17 10:00 01/16/17 09:57 Protonix - PO 40 mg DAILY [facility] Administration Polyethylene Glycol 17 gm 01/07/17 17:00 01/16/17 09:57 Miralax (For Daily Use) - PO Not Given DAILY [facility] Ursodiol 300 mg 01/08/17 22:00 06/27/17 09:57 Actigal - PO 300 mg BID [facility]ICHIE Administration Laboratory Tests 01/15/17 01/15/17 19:19 22:00 Urine Glucose (UA) 3+ H Urine Ketones Negative Urine Blood 1+ H Urine RBC 2 Ur Epithelial Cells Few DARRELL Screen Pending Impression 1. ALEJANDRA resolved 2. right renal lesion - pyelo vs infarcts 3. DM 4. hyperlipidemia 5. pleural effusion 6. abdominal pain 7. leukocytosis 8. microscopic hematuria Plan - discussed with ID, will check ESR and CRP - will start serologic workup - renal ultrasound reviewed - vascular input is pending - echo reviewed - pulm input appreciated - repeat labs in am - will follow pt Dr Haney
[2017-01-16 18:11] VITALS: BP 109/62; PULSE 88; TEMP 98.8
--- NOTE | 2017-01-16 18:40 | CONSULT ---
Consult - Past Medical History Cardio/Vascular: Yes: Hyperlipdemia ...LMP Comment: 10 years ago Endocrine: Yes: Diabetes Mellitus - Past Surgical History Past Surgical History: Yes: None - Alcohol/Substance Use Hx Alcohol Use: No - Smoking History Smoking history: Never smoked Have you smoked in the past 12 months: No Home Medications - Allergies Allergies/Adverse Reactions: Allergies Allergy/AdvReac Type Severity Reaction Status Date / Time No Known Allergies Allergy Verified 01/03/17 18:31 - Home Medications Home Medications: Ambulatory Orders Dapagliflozin Propanediol [Farxiga] 5 mg PO DAILY 01/04/17 Insulin (Levemir) [Levemir Flexpen -] 0 units SQ DAILY 01/04/17 Metformin HCl [Metformin HCl ER] 1,000 mg PO BID 01/04/17 Physical Exam Vital Signs: Vital Signs Temperature 98.8 F 01/16/17 16:20 Pulse Rate 88 01/16/17 16:20 Respiratory Rate 22 01/16/17 16:20 Blood Pressure 109/62 01/16/17 16:20 O2 Sat by Pulse Oximetry (%) 95 01/16/17 09:00 Labs: CBC, BMP 01/15/17 06:30 01/15/17 06:30 Assessment/Plan VAscular Surgery The patient is a 41-year-old female, with a significant past medical history of diabetes, who presents to the ED with 3 days of headache, weakness, and lightheadedness. Pt reports taking Aleve but with no relief of her symptoms. Upon examination, pt is experiencing upper abdominal pain and nausea. She reports not being able to take her insulin today due to nausea. Pt threw up before arriving at the ED. The patient denies any fever, chills, cough, or diarrhea. Pt denies any chest pain or shortness of breath. Pt denies any recent sick contacts. Called to evaluate MRI to rule out infarcts. PE Head - NC/AT Lung - CTA heart - RRR abd - soft,nt,nd, no right sided pain on palpation. ext- warm, pink. A/P MRI images reviewed. Question of if this a infarct. CT scan of abd and pelvis did not find right kidney infarcts. Renal US did not find kidney infarct in right kidney. The MRI findings could just be motion artifact. CAn't tell for sure. Pt is asymptomatic on physical exam. Very unlikely this is a kidney infarct. Will watch and montior for now. No leuocytosis. Will follow Panfilo Chow DO
[2017-01-16] MEDS ORDERED: PT OWN MED DRAWER 7, Y5N ONE (19:52)
[2017-01-20 00:06] LABS: C-ANCA <1:20 titer (Neg:<1:20); MYELOPEROXIDASE ANTIBODY <9.0 U/mL (0.0-9.0); P-ANCA <1:20 titer (Neg:<1:20); PROTEINASE-3 ANTIBODY <3.5 U/mL (0.0-3.5)
== END 2017-01-16 20:47 | disposition home or self-care (01) | DRG 682 ==
LOC: JER 18:14 → JERBED 01-04 03:02 → UNDOADMIN 01-04 03:58 → JERBED 01-04 03:58 → J8W 01-04 18:05
PROVIDERS: ADMIT Internal Medicine; ATTEND Internal Medicine
DX: N17.9 Acute kidney failure, unspecified (principal); E13.10 Other specified diabetes mellitus with ketoacidosis without coma; J90 Pleural effusion, not elsewhere classified; N39.0 Urinary tract infection, site not specified; E86.0 Dehydration; E10.43 Type 1 diabetes mellitus with diabetic autonomic (poly)neuropathy; K31.84 Gastroparesis; D72.829 Elevated white blood cell count, unspecified; R10.13 Epigastric pain; E78.5 Hyperlipidemia, unspecified; R31.29 Other microscopic hematuria
CPT/HCPCS: 36415; 71020-TC; 71250-TC; 74176-TC; 74177-TC; 74181-TC; 76705-TC; 76775-TC; 76856-TC; 78226-TC; 80053; 81003; 81015; 82009; 82803; 82977; 83036; 83520; 83690; 84703; 85025; 85027; 85651; 86038; 86140; 86225; 86256; 86431; 87040; 87086; 90670; 93306-TC; 99283-25; A9537; J1644